=== PATIENT | female | born 1950 | race Caucasian/White ===

== ENCOUNTER 2018-06-04 10:56 | Inpatient (IN) | payer MEDICARE, MEDICAID ==
[~2018-06-04] VITALS: Ht 152.4 cm; Wt 84.4 kg
[2018-06-04] MEDS: IPRATROPIUM/ALBUTEROL 0.5-3(2.5)MG/3ML NEB HHN SCH ×6 (04:00→21:45)
[~2018-06-04 10:56] MED LIST: ALBU05 NEB; BENA40TA9 PO; CLOP75TA33 PO; FERR325T30 PO; FLUT1DIS3 INH; GLV55 PO; INSLIS SUBCUT; LANTUSUD SUBCUT; OMEP20CA4 PO; PHEN100C4 PO; ROSU20TA PO; TAMO20TA4 PO; TIOT18CA3 INH; ZOLP10TA2 PO
[2018-06-04] MEDS ORDERED: METHYLPREDNISOLONE SOD SUCC 125 MG/2 ML VIAL IV STA (11:17)
[2018-06-04] MEDS ORDERED: LEVOFLOXACIN 750MG PREMIX 150 ML IV ONE (11:30)
[2018-06-04] MEDS ORDERED: MAGNESIUM 2 G PREMIX 50 ML IV ONE (11:30)
[2018-06-04] MEDS ORDERED: IPRATROPIUM/ALBUTEROL 0.5-3(2.5)MG/3ML NEB HHN ONE (11:45)
[2018-06-04 11:51] LABS: BG BASE EXCESS -1.7 mmol/L (-2.0-2.0); BG CARBOXYHEMOGLOBIN 0.9 % (0.5-1.5); BG DEOXYHEMOGLOBIN 13.4 % (0.0-5.0); BG HCO3 ACT 25.7 mmol/L (22.0-26.0); BG METHEMOGLOBIN 0.3 % (0.0-1.5); BG OXYGEN SATURATION 86.4 % (92.0-98.5); BG OXYHEMOGLOBIN 85.4 % (94.0-97.0); BG PCO2 56.9 mmHg (35.0-45.0); BG PH 7.272 (7.350-7.450); BG PO2 57.1 mmHg (75.0-100.0); BG SAMPLE SITE LEFT RADIAL; BG VENT MODE MASK - SIMPLE
[2018-06-04 12:11] LABS: CHLORIDE 105 mEq/L (98-107)
[2018-06-04 12:18] LABS: BASOPHILS % 1.1 % (0.0-2.0); EOSINOPHILS % 1.7 % (0.0-5.0); HEMATOCRIT. 30.1 % (36.0-48.0); HEMOGLOBIN. 9.6 g/dL (12.0-16.0); LYMPHOCYTES % 7.5 % (20.0-50.0); MEAN CORPUSCULAR HEMOGLOBIN 30.3 pg (28.0-32.0); MEAN CORPUSCULAR VOLUME 95.2 fL (81.0-99.0); MEAN PLATELET VOLUME 7.9 fl (7.4-10.4); MONOCYTES % 4.4 % (2.0-8.0); NEUTROPHILS % 85.3 % (40.0-76.0); PLATELET 179 x1000/uL (130-400); RED BLOOD CELL COUNT 3.16 mill/uL (4.2-5.4); RED CELL DISTRIBUTION WIDTH 18.9 % (11.6-14.6)
[2018-06-04 12:21] LABS: PARTIAL THROMBOPLASTIN TIME 24.4 sec (23.4-31.0); PROTHROMBIN TIME 9.9 sec (9.1-11.1)
[2018-06-04 13:18] LABS: CLARITY URINE CLOUDY (CLEAR); COLOR URINE YELLOW (YELLOW); KETONES URINE NEGATIVE (NEGATIVE); LEUKOCYTE ESTERASE URINE NEGATIVE (NEGATIVE); NITRITE URINE NEGATIVE (NEGATIVE); OCCULT BLOOD URINE NEGATIVE (NEGATIVE); PROTEIN URINE NEGATIVE (NEGATIVE); SPECIFIC GRAVITY URINE 1.017 (1.005-1.030); UROBILINOGEN URINE 0.2 E.U./dL (0.2-1.0)
[2018-06-04] MEDS ORDERED: ONDANSETRON HCL 4MG/2ML INJ IV ONE (13:30)
[2018-06-04] MEDS ORDERED: MORPHINE SULFATE 4 MG/ML CPJ (NOT FOR IM USE) IV ONE (13:30)
[2018-06-04 18:00] VITALS: BP 109/51
[2018-06-04 18:13] VITALS: BP 105/66
[2018-06-04] MEDS ORDERED: PIPERACILLIN/TAZ 3.375G PREMIX 50 ML IV ONE (19:00)
[2018-06-04] MEDS ORDERED: P20 MT (19:52)
[2018-06-04] MEDS ORDERED: FOLI-43 MT (19:52)
[2018-06-04] MEDS ORDERED: GABA-531 MT (19:52)
[2018-06-04] MEDS ORDERED: INSULIN LISPRO 100 UNITS/ML SUBCUT NR ×2 (20:00→23:30)
[2018-06-04] MEDS ORDERED: ZOSYN XX SCH (20:00)
[2018-06-04 20:03] VITALS: BP 121/43
[2018-06-04] MEDS ORDERED: INSULIN LISPRO 100 UNITS/ML SUBCUT SCH (21:00)
[2018-06-04] MEDS ORDERED: IPRATROPIUM/ALBUTEROL 0.5-3(2.5)MG/3ML NEB ONE (21:41)
[2018-06-04] MEDS ORDERED: IPRATROPIUM/ALBUTEROL 0.5-3(2.5)MG/3ML NEB HHN PRN (21:45)
[2018-06-04] MEDS: BLOOD SUGAR DIAGNOSTIC STRIP TEST SCH (21:59)
[2018-06-04 22:00] VITALS: BP 95/45
[2018-06-04] MEDS ORDERED: VANCOMYCIN 2,000 MG in DEXT 5% WATER 500 ML IV SCH (22:00)
[2018-06-04] MEDS ORDERED: PIPERACILLIN/TAZ 2.25G PREMIX 50 ML IV SCH (22:00)
[2018-06-04] MEDS: INSULIN GLARGINE UD 100 UNITS/ML SYR SUBCUT SCH (22:41)
[2018-06-05] VITALS (11 sets, daily range): BP systolic 90–154; BP diastolic 38–71
[2018-06-05] MEDS: IPRATROPIUM/ALBUTEROL 0.5-3(2.5)MG/3ML NEB HHN SCH ×7 (01:02→20:52)
[2018-06-05] MEDS: PIPERACILLIN/TAZ 3.375G PREMIX 50 ML IV SCH ×2 (01:36→06:16)
[2018-06-05] MEDS: SODIUM CHLORIDE 0.45% 1,000 ML IV SCH ×2 (01:37→19:30)
[2018-06-05 06:05] LABS: HEMATOCRIT. 25.2 % (36.0-48.0); HEMOGLOBIN. 8.1 g/dL (12.0-16.0); MEAN CORPUSCULAR HEMOGLOBIN 29.5 pg (28.0-32.0); MEAN PLATELET VOLUME 7.9 fl (7.4-10.4); PLATELET 169 x1000/uL (130-400); RED BLOOD CELL COUNT 2.74 mill/uL (4.2-5.4); RED CELL DISTRIBUTION WIDTH 18.2 % (11.6-14.6)
[2018-06-05] MEDS: BLOOD SUGAR DIAGNOSTIC STRIP TEST SCH ×4 (06:16→21:30)
[2018-06-05] MEDS: PHENYTOIN SODIUM EXTENDED 100MG CAPSULE PO SCH ×2 (06:16→17:21)
[2018-06-05 06:36] LABS: PHOSPHORUS 4.8 mg/dL (2.5-4.9)
[2018-06-05] MEDS ORDERED: OMEPRAZOLE 20MG CAPSULE EXTENDED RELEASE PO SCH (06:50)
[2018-06-05] MEDS: INSULIN LISPRO 100 UNITS/ML SUBCUT SCH ×5 (08:11→22:25)
[2018-06-05] MEDS: PREDNISONE 20MG TABLET PO SCH (08:22)
[2018-06-05] MEDS: FOLIC ACID 1MG TABLET PO SCH (08:22)
[2018-06-05] MEDS: FERROUS SULFATE 300MG/5ML UDC PO SCH ×2 (08:23→17:23)
[2018-06-05] MEDS ORDERED: BARIUM SULFATE 450ML ORAL SUSP PO SCH (10:00)
[2018-06-05] MEDS ORDERED: DIATR MEGLU/DIATRIZOATE SOLN 30ML PO SCH (10:00)
[2018-06-05] MEDS: TAMOXIFEN 10MG TABLET PO SCH (10:08)
[2018-06-05 10:46] LABS: PLATELET ESTIMATE NORMAL
[2018-06-05 10:57] LABS: BG BASE EXCESS -4.8 mmol/L (-2.0-2.0); BG CARBOXYHEMOGLOBIN 0.8 % (0.5-1.5); BG DEOXYHEMOGLOBIN 9.4 % (0.0-5.0); BG FRACTION INSPIRED OXYGEN 44; BG HCO3 ACT 23.7 mmol/L (22.0-26.0); BG METHEMOGLOBIN 0.3 % (0.0-1.5); BG OXYGEN SATURATION 90.5 % (92.0-98.5); BG OXYHEMOGLOBIN 89.5 % (94.0-97.0); BG PH 7.187 (7.350-7.450); BG PO2 66.6 mmHg (75.0-100.0); BG SAMPLE SITE LEFT RADIAL; BG TOTAL HEMOGLOBIN 9.1 g/dL (12.0-18.0); BG VENT MODE NASAL CANNULA
[2018-06-05] MEDS: PIPERACILLIN/TAZ 2.25G PREMIX 50 ML IV SCH ×3 (11:45→23:20)
[2018-06-05] MEDS: ACETAMINOPHEN 500MG TABLET PO PRN ×2 (12:09→22:55)
[2018-06-05 17:26] LABS: BG BASE EXCESS -3.1 mmol/L (-2.0-2.0); BG BILEVEL POS AIRWAY PRESSURE 15/5; BG CARBOXYHEMOGLOBIN 0.5 % (0.5-1.5); BG DEOXYHEMOGLOBIN 2.1 % (0.0-5.0); BG HCO3 ACT 24.6 mmol/L (22.0-26.0); BG METHEMOGLOBIN 0.2 % (0.0-1.5); BG OXYGEN SATURATION 97.9 % (92.0-98.5); BG OXYHEMOGLOBIN 97.2 % (94.0-97.0); BG PCO2 58.6 mmHg (35.0-45.0); BG PH 7.241 (7.350-7.450); BG PO2 133.3 mmHg (75.0-100.0); BG SAMPLE SITE RIGHT BRACHIAL; BG TOTAL HEMOGLOBIN 9.5 g/dL (12.0-18.0); BG VENT MODE MASK - BIPAP; BG VENT RATE 12 set
[2018-06-05] MEDS ORDERED: NON FORMULARY PATIENT HOME MED EA XX SCH ×2 (18:45→21:45)
[2018-06-05] MEDS ORDERED: PHENYTOIN SODIUM 100MG/2ML VIAL IV SCH (19:00)
[2018-06-05] MEDS ORDERED: VANCOMYCIN 750 MG PREMIX 150 ML IV SCH (20:00)
[2018-06-05] MEDS: ARFORMOTEROL TARTRATE 15MCG/2ML NEB NEB SCH (20:59)
[2018-06-05] MEDS ORDERED: VANCOMYCIN 1 G PREMIX 200 ML IV SCH (21:00)
[2018-06-05] MEDS ORDERED: SODIUM POLYSTYRENE SULFONATE 15 G/60 ML BOT PO NR (21:00)
[2018-06-05] MEDS ORDERED: NON FORMULARY PATIENT HOME MED EA XX STA (21:34)
[2018-06-05] MEDS ORDERED: PHENYTOIN SODIUM 200 MG in SODIUM CHLORIDE 0.9% 50 ML IV SCH (21:45)
[2018-06-05] MEDS ORDERED: SORBITOL 70% SOLN 30ML PO NR (22:00)
[2018-06-05] MEDS: ATORVASTATIN CALCIUM 40MG TABLET PO SCH (22:24)
[2018-06-05] MEDS: INSULIN GLARGINE UD 100 UNITS/ML SYR SUBCUT SCH (22:26)
[2018-06-05] MEDS ORDERED: PHENYTOIN SODIUM 400 MG in SODIUM CHLORIDE 0.9% 50 ML IV NR (22:30)
[2018-06-06] VITALS (12 sets, daily range): BP systolic 99–149; BP diastolic 33–77
[2018-06-06] MEDS: IPRATROPIUM/ALBUTEROL 0.5-3(2.5)MG/3ML NEB HHN SCH ×6 (01:01→21:57)
[2018-06-06] MEDS: HYDROCODONE/ACETAMINOPHEN 5/325MG TABLET PO PRN ×2 (02:52→21:07)
[2018-06-06] MEDS: PIPERACILLIN/TAZ 2.25G PREMIX 50 ML IV SCH ×3 (06:37→17:44)
[2018-06-06] MEDS: INSULIN LISPRO 100 UNITS/ML SUBCUT SCH ×8 (06:38→20:44)
[2018-06-06] MEDS: BLOOD SUGAR DIAGNOSTIC STRIP TEST SCH ×4 (06:39→20:41)
[2018-06-06] MEDS: ARFORMOTEROL TARTRATE 15MCG/2ML NEB NEB SCH (08:28)
[2018-06-06] MEDS: PANTOPRAZOLE SODIUM 40 MG/VIAL IV SCH (08:34)
[2018-06-06] MEDS: FOLIC ACID 1MG TABLET PO SCH (08:34)
[2018-06-06] MEDS: FERROUS SULFATE 300MG/5ML UDC PO SCH ×2 (08:34→17:44)
[2018-06-06] MEDS: PREDNISONE 20MG TABLET PO SCH (08:34)
[2018-06-06] MEDS: PHENYTOIN SODIUM 200 MG in SODIUM CHLORIDE 0.9% 50 ML IV SCH ×2 (08:34→21:26)
[2018-06-06] MEDS: TAMOXIFEN 10MG TABLET PO SCH (08:35)
[2018-06-06] MEDS ORDERED: PHENYTOIN SODIUM 100MG/2ML VIAL IV SCH (09:00)
[2018-06-06 11:02] LABS: BG BASE EXCESS 0.2 mmol/L (-2.0-2.0); BG BILEVEL POS AIRWAY PRESSURE 15/5; BG CARBOXYHEMOGLOBIN 0.6 % (0.5-1.5); BG DEOXYHEMOGLOBIN 6.3 % (0.0-5.0); BG FRACTION INSPIRED OXYGEN 40; BG HCO3 ACT 26.1 mmol/L (22.0-26.0); BG METHEMOGLOBIN 0.1 % (0.0-1.5); BG OXYGEN SATURATION 93.7 % (92.0-98.5); BG PCO2 49.2 mmHg (35.0-45.0); BG PH 7.343 (7.350-7.450); BG SAMPLE SITE RIGHT BRACHIAL; BG TOTAL HEMOGLOBIN 8.8 g/dL (12.0-18.0); BG VENT MODE MASK - BIPAP; BG VENT RATE 12 set
[2018-06-06] MEDS: SODIUM CHLORIDE 0.45% 1,000 ML IV SCH (16:33)
[2018-06-06 16:41] LABS: HEMATOCRIT. 26.6 % (36.0-48.0); HEMOGLOBIN. 8.7 g/dL (12.0-16.0); MEAN CORPUSCULAR HEMOGLOBIN 30.4 pg (28.0-32.0); MEAN CORPUSCULAR VOLUME 93.1 fL (81.0-99.0); MEAN PLATELET VOLUME 7.9 fl (7.4-10.4); PLATELET 191 x1000/uL (130-400); RED BLOOD CELL COUNT 2.86 mill/uL (4.2-5.4); RED CELL DISTRIBUTION WIDTH 18.3 % (11.6-14.6)
[2018-06-06 17:07] LABS: PLATELET ESTIMATE NORMAL
[2018-06-06] MEDS: ATORVASTATIN CALCIUM 40MG TABLET PO SCH (21:07)
[2018-06-06] MEDS: INSULIN GLARGINE UD 100 UNITS/ML SYR SUBCUT SCH (22:00)
[2018-06-06] MEDS ORDERED: VANCOMYCIN 1 G PREMIX 200 ML IV NR (23:59)
[2018-06-07] VITALS (13 sets, daily range): BP systolic 113–150; BP diastolic 49–111
[2018-06-07] MEDS: DEXTROSE 50% WATER 50ML SYRINGE IV PRN ×2 (00:01→06:35)
[2018-06-07] MEDS: PIPERACILLIN/TAZ 2.25G PREMIX 50 ML IV SCH ×5 (00:53→23:42)
[2018-06-07] MEDS: ACETAMINOPHEN 500MG TABLET PO PRN ×2 (01:30→09:16)
[2018-06-07] MEDS: IPRATROPIUM/ALBUTEROL 0.5-3(2.5)MG/3ML NEB HHN SCH ×6 (01:44→21:46)
[2018-06-07] MEDS: HYDROCODONE/ACETAMINOPHEN 5/325MG TABLET PO PRN ×4 (05:30→20:24)
[2018-06-07] MEDS: BLOOD SUGAR DIAGNOSTIC STRIP TEST SCH ×4 (06:30→20:21)
[2018-06-07 07:17] LABS: EOSINOPHILS % 2.2 % (0.0-5.0); HEMATOCRIT. 27.6 % (36.0-48.0); LYMPHOCYTES % 9.5 % (20.0-50.0); MEAN CORPUSCULAR HEMOGLOBIN 29.6 pg (28.0-32.0); MEAN CORPUSCULAR VOLUME 91.1 fL (81.0-99.0); MEAN PLATELET VOLUME 7.6 fl (7.4-10.4); MONOCYTES % 9.2 % (2.0-8.0); NEUTROPHILS % 78.1 % (40.0-76.0); PLATELET 187 x1000/uL (130-400); RED BLOOD CELL COUNT 3.03 mill/uL (4.2-5.4); RED CELL DISTRIBUTION WIDTH 18.1 % (11.6-14.6)
[2018-06-07] MEDS: ARFORMOTEROL TARTRATE 15MCG/2ML NEB NEB SCH ×2 (07:41→22:18)
[2018-06-07] MEDS: FOLIC ACID 1MG TABLET PO SCH (09:15)
[2018-06-07] MEDS: PHENYTOIN SODIUM 200 MG in SODIUM CHLORIDE 0.9% 50 ML IV SCH ×2 (09:15→23:03)
[2018-06-07] MEDS: PREDNISONE 20MG TABLET PO SCH (09:16)
[2018-06-07] MEDS: TAMOXIFEN 10MG TABLET PO SCH (09:16)
[2018-06-07] MEDS: FERROUS SULFATE 300MG/5ML UDC PO SCH ×2 (09:16→16:52)
[2018-06-07] MEDS: PANTOPRAZOLE SODIUM 40 MG/VIAL IV SCH (09:16)
[2018-06-07] MEDS ORDERED: PHENYTOIN SODIUM 700 MG in SODIUM CHLORIDE 0.9% 100 ML IV SCH (09:30)
[2018-06-07 09:40] LABS: PHOSPHORUS 1.9 mg/dL (2.5-4.9)
[2018-06-07] MEDS: SODIUM CHLORIDE 0.45% 1,000 ML IV SCH (11:47)
[2018-06-07 14:31] LABS: BG BASE EXCESS 2.7 mmol/L (-2.0-2.0); BG BILEVEL POS AIRWAY PRESSURE 15/5; BG CARBOXYHEMOGLOBIN 0.8 % (0.5-1.5); BG DEOXYHEMOGLOBIN 1.5 % (0.0-5.0); BG HCO3 ACT 27.6 mmol/L (22.0-26.0); BG METHEMOGLOBIN 0.2 % (0.0-1.5); BG OXYGEN SATURATION 98.5 % (92.0-98.5); BG OXYHEMOGLOBIN 97.5 % (94.0-97.0); BG PCO2 44.1 mmHg (35.0-45.0); BG PH 7.414 (7.350-7.450); BG SAMPLE SITE RIGHT RADIAL; BG TOTAL HEMOGLOBIN 9.3 g/dL (12.0-18.0); BG VENT MODE MASK - BIPAP; BG VENT RATE 12 set
[2018-06-07] MEDS ORDERED: SODIUM PHOS,M-BASIC-D-BASIC 20 MM in DEXT 5% WATER 243.3333 ML IV NR (15:00)
[2018-06-07] MEDS: ATORVASTATIN CALCIUM 40MG TABLET PO SCH (20:22)
[2018-06-08] VITALS (11 sets, daily range): BP systolic 122–167; BP diastolic 55–80
[2018-06-08] MEDS: IPRATROPIUM/ALBUTEROL 0.5-3(2.5)MG/3ML NEB HHN SCH ×5 (01:24→21:52)
[2018-06-08] MEDS: PIPERACILLIN/TAZ 2.25G PREMIX 50 ML IV SCH ×3 (05:36→17:18)
[2018-06-08] MEDS: VANCOMYCIN 1 G PREMIX 200 ML IV SCH (06:06)
[2018-06-08] MEDS: HYDROCODONE/ACETAMINOPHEN 5/325MG TABLET PO PRN ×3 (06:24→21:35)
[2018-06-08] MEDS: BLOOD SUGAR DIAGNOSTIC STRIP TEST SCH ×4 (06:24→21:35)
[2018-06-08 07:26] LABS: BASOPHILS % 1.1 % (0.0-2.0); EOSINOPHILS % 1.8 % (0.0-5.0); HEMATOCRIT. 28.4 % (36.0-48.0); HEMOGLOBIN. 9.3 g/dL (12.0-16.0); LYMPHOCYTES % 9.3 % (20.0-50.0); MEAN CORPUSCULAR HEMOGLOBIN 29.6 pg (28.0-32.0); MEAN CORPUSCULAR VOLUME 90.5 fL (81.0-99.0); MEAN PLATELET VOLUME 7.6 fl (7.4-10.4); MONOCYTES % 9.2 % (2.0-8.0); NEUTROPHILS % 78.6 % (40.0-76.0); PLATELET 206 x1000/uL (130-400); RED BLOOD CELL COUNT 3.13 mill/uL (4.2-5.4); RED CELL DISTRIBUTION WIDTH 18.5 % (11.6-14.6)
[2018-06-08] MEDS: FAMOTIDINE 20MG/2ML VIAL IV SCH (08:21)
[2018-06-08] MEDS: PREDNISONE 20MG TABLET PO SCH (08:21)
[2018-06-08] MEDS: FERROUS SULFATE 300MG/5ML UDC PO SCH ×2 (08:21→17:18)
[2018-06-08] MEDS: FOLIC ACID 1MG TABLET PO SCH (08:21)
[2018-06-08] MEDS: TAMOXIFEN 10MG TABLET PO SCH (08:22)
[2018-06-08] MEDS: PHENYTOIN SODIUM 200 MG in SODIUM CHLORIDE 0.9% 50 ML IV SCH ×2 (09:24→21:15)
[2018-06-08] MEDS: ACETAMINOPHEN 500MG TABLET PO PRN ×2 (09:33→16:26)
[2018-06-08] MEDS ORDERED: DEXTROSE 50% WATER 50ML SYRINGE IV PRN (12:15)
[2018-06-08] MEDS: ARFORMOTEROL TARTRATE 15MCG/2ML NEB NEB SCH ×2 (13:03→21:50)
[2018-06-08] MEDS: INSULIN LISPRO 100 UNITS/ML SUBCUT SCH ×3 (13:13→21:00)
[2018-06-08] MEDS: SODIUM CHLORIDE 0.45% 1,000 ML IV SCH (16:31)
[2018-06-08] MEDS: ATORVASTATIN CALCIUM 40MG TABLET PO SCH (21:15)
[2018-06-08] MEDS: ONDANSETRON HCL 4MG/2ML INJ IV PRN (21:35)
[2018-06-09] VITALS (10 sets, daily range): BP systolic 108–138; BP diastolic 55–80
[2018-06-09] MEDS: PIPERACILLIN/TAZ 2.25G PREMIX 50 ML IV SCH ×3 (00:48→11:32)
[2018-06-09] MEDS: IPRATROPIUM/ALBUTEROL 0.5-3(2.5)MG/3ML NEB HHN SCH ×6 (00:55→20:11)
[2018-06-09] MEDS: ACETAMINOPHEN 500MG TABLET PO PRN ×3 (03:11→20:31)
[2018-06-09] MEDS: SODIUM CHLORIDE 0.45% 1,000 ML IV SCH ×2 (03:30→23:02)
[2018-06-09] MEDS: HYDROCODONE/ACETAMINOPHEN 5/325MG TABLET PO PRN (04:26)
[2018-06-09] MEDS: VANCOMYCIN 1 G PREMIX 200 ML IV SCH (06:39)
[2018-06-09] MEDS: BLOOD SUGAR DIAGNOSTIC STRIP TEST SCH ×4 (06:43→20:31)
[2018-06-09] MEDS: INSULIN LISPRO 100 UNITS/ML SUBCUT SCH ×4 (06:53→21:37)
[2018-06-09 08:13] LABS: BASOPHILS % 1.1 % (0.0-2.0); EOSINOPHILS % 2.3 % (0.0-5.0); HEMATOCRIT. 27.8 % (36.0-48.0); HEMOGLOBIN. 9.1 g/dL (12.0-16.0); LYMPHOCYTES % 11.3 % (20.0-50.0); MEAN CORPUSCULAR HEMOGLOBIN 29.8 pg (28.0-32.0); MEAN PLATELET VOLUME 7.6 fl (7.4-10.4); MONOCYTES % 9.8 % (2.0-8.0); NEUTROPHILS % 75.5 % (40.0-76.0); PLATELET 187 x1000/uL (130-400); RED BLOOD CELL COUNT 3.05 mill/uL (4.2-5.4); RED CELL DISTRIBUTION WIDTH 17.8 % (11.6-14.6)
[2018-06-09] MEDS: FAMOTIDINE 20MG/2ML VIAL IV SCH (08:17)
[2018-06-09] MEDS: TAMOXIFEN 10MG TABLET PO SCH (08:18)
[2018-06-09] MEDS: PREDNISONE 20MG TABLET PO SCH (08:18)
[2018-06-09] MEDS: FOLIC ACID 1MG TABLET PO SCH (08:18)
[2018-06-09] MEDS: FERROUS SULFATE 300MG/5ML UDC PO SCH ×2 (08:24→16:40)
[2018-06-09 08:34] LABS: PHOSPHORUS 2.9 mg/dL (2.5-4.9)
[2018-06-09] MEDS: ARFORMOTEROL TARTRATE 15MCG/2ML NEB NEB SCH ×2 (08:54→20:11)
[2018-06-09] MEDS: OMEPRAZOLE 20MG CAPSULE EXTENDED RELEASE PO SCH (09:00)
[2018-06-09] MEDS: BENAZEPRIL 10MG TABLET PO SCH (09:00)
[2018-06-09] MEDS: GABAPENTIN 300MG CAPSULE PO SCH ×2 (09:25→16:40)
[2018-06-09] MEDS: PHENYTOIN SODIUM 200 MG in SODIUM CHLORIDE 0.9% 50 ML IV SCH ×2 (09:30→20:17)
[2018-06-09] MEDS ORDERED: MAGNESIUM 4 G PREMIX 100 ML IV NR (12:00)
[2018-06-09] MEDS: TERBINAFINE HCL 1% CREAM 30GM TOP SCH (16:40)
[2018-06-09] MEDS: VANCOMYCIN HCL 1000 MG/20 ML ORAL PO SCH (19:03)
[2018-06-09] MEDS: ATORVASTATIN CALCIUM 40MG TABLET PO SCH (20:17)
[2018-06-10] VITALS (12 sets, daily range): BP systolic 93–146; BP diastolic 46–91
[2018-06-10] MEDS: IPRATROPIUM/ALBUTEROL 0.5-3(2.5)MG/3ML NEB HHN SCH ×5 (00:11→20:28)
[2018-06-10] MEDS: VANCOMYCIN HCL 1000 MG/20 ML ORAL PO SCH ×5 (00:13→23:26)
[2018-06-10] MEDS: ARFORMOTEROL TARTRATE 15MCG/2ML NEB NEB SCH ×2 (00:43→18:30)
[2018-06-10] MEDS: HYDROCODONE/ACETAMINOPHEN 5/325MG TABLET PO PRN ×5 (02:23→23:26)
[2018-06-10 05:42] LABS: HEMATOCRIT. 28.2 % (36.0-48.0); HEMOGLOBIN. 9.1 g/dL (12.0-16.0); MEAN CORPUSCULAR HEMOGLOBIN 29.3 pg (28.0-32.0); MEAN CORPUSCULAR VOLUME 90.5 fL (81.0-99.0); MEAN PLATELET VOLUME 7.4 fl (7.4-10.4); PLATELET 194 x1000/uL (130-400); RED BLOOD CELL COUNT 3.12 mill/uL (4.2-5.4); RED CELL DISTRIBUTION WIDTH 17.9 % (11.6-14.6)
[2018-06-10 06:00] LABS: PHOSPHORUS 2.5 mg/dL (2.5-4.9)
[2018-06-10] MEDS: OMEPRAZOLE 20MG CAPSULE EXTENDED RELEASE PO SCH (06:39)
[2018-06-10] MEDS: BLOOD SUGAR DIAGNOSTIC STRIP TEST SCH ×4 (06:40→21:00)
[2018-06-10] MEDS: INSULIN LISPRO 100 UNITS/ML SUBCUT SCH ×4 (06:48→21:00)
[2018-06-10 08:59] LABS: PLATELET ESTIMATE NORMAL
[2018-06-10] MEDS: FOLIC ACID 1MG TABLET PO SCH (10:24)
[2018-06-10] MEDS: FAMOTIDINE 20MG/2ML VIAL IV SCH (10:24)
[2018-06-10] MEDS: BENAZEPRIL 10MG TABLET PO SCH (10:24)
[2018-06-10] MEDS: GABAPENTIN 300MG CAPSULE PO SCH ×2 (10:24→18:01)
[2018-06-10] MEDS: TAMOXIFEN 10MG TABLET PO SCH (10:24)
[2018-06-10] MEDS: FERROUS SULFATE 300MG/5ML UDC PO SCH ×2 (10:24→18:01)
[2018-06-10] MEDS: PHENYTOIN SODIUM 200 MG in SODIUM CHLORIDE 0.9% 50 ML IV SCH ×2 (10:25→22:10)
[2018-06-10] MEDS: TERBINAFINE HCL 1% CREAM 30GM TOP SCH (10:26)
[2018-06-10] MEDS: PREDNISONE 20MG TABLET PO SCH (10:26)
[2018-06-10] MEDS ORDERED: LORAZEPAM 2MG/ML CPJ IV SCH (13:00)
[2018-06-10 13:19] LABS: BG BASE EXCESS 4.1 mmol/L (-2.0-2.0); BG BILEVEL POS AIRWAY PRESSURE ST=15/5; BG CARBOXYHEMOGLOBIN 0.3 % (0.5-1.5); BG DEOXYHEMOGLOBIN 2.5 % (0.0-5.0); BG FRACTION INSPIRED OXYGEN 65; BG METHEMOGLOBIN 0.1 % (0.0-1.5); BG OXYGEN SATURATION 97.5 % (92.0-98.5); BG OXYHEMOGLOBIN 97.1 % (94.0-97.0); BG PCO2 45.7 mmHg (35.0-45.0); BG PH 7.421 (7.350-7.450); BG PO2 109.4 mmHg (75.0-100.0); BG PRESSURE SUPPORT 10; BG SAMPLE SITE LEFT RADIAL; BG TOTAL HEMOGLOBIN 9.9 g/dL (12.0-18.0); BG VENT MODE MASK - BIPAP; BG VENT RATE 12 set
[2018-06-10] MEDS: SODIUM CHLORIDE 0.45% 1,000 ML IV SCH (18:02)
[2018-06-10] MEDS: ATORVASTATIN CALCIUM 40MG TABLET PO SCH (22:10)
[2018-06-11] VITALS (10 sets, daily range): BP systolic 95–128; BP diastolic 48–87
[2018-06-11] MEDS: IPRATROPIUM/ALBUTEROL 0.5-3(2.5)MG/3ML NEB HHN SCH ×6 (00:43→21:32)
[2018-06-11] MEDS: HYDROCODONE/ACETAMINOPHEN 5/325MG TABLET PO PRN ×2 (04:24→20:47)
[2018-06-11] MEDS: BLOOD SUGAR DIAGNOSTIC STRIP TEST SCH ×4 (05:56→20:48)
[2018-06-11] MEDS: VANCOMYCIN HCL 1000 MG/20 ML ORAL PO SCH ×3 (05:56→17:13)
[2018-06-11] MEDS: OMEPRAZOLE 20MG CAPSULE EXTENDED RELEASE PO SCH (06:02)
[2018-06-11 06:55] LABS: BG BASE EXCESS 4.6 mmol/L (-2.0-2.0); BG BILEVEL POS AIRWAY PRESSURE 15/5; BG CARBOXYHEMOGLOBIN 0.2 % (0.5-1.5); BG DEOXYHEMOGLOBIN 3.3 % (0.0-5.0); BG FRACTION INSPIRED OXYGEN 65; BG HCO3 ACT 30.3 mmol/L (22.0-26.0); BG METHEMOGLOBIN 0.2 % (0.0-1.5); BG OXYGEN SATURATION 96.7 % (92.0-98.5); BG OXYHEMOGLOBIN 96.3 % (94.0-97.0); BG PCO2 51.4 mmHg (35.0-45.0); BG PH 7.388 (7.350-7.450); BG PO2 100.3 mmHg (75.0-100.0); BG SAMPLE SITE LEFT RADIAL; BG TOTAL HEMOGLOBIN 8.7 g/dL (12.0-18.0); BG VENT MODE MASK - BIPAP; BG VENT RATE 12 set
[2018-06-11] MEDS: INSULIN LISPRO 100 UNITS/ML SUBCUT SCH ×4 (07:20→21:13)
[2018-06-11 07:54] LABS: BASOPHILS % 1.2 % (0.0-2.0); EOSINOPHILS % 1.6 % (0.0-5.0); HEMATOCRIT. 26.8 % (36.0-48.0); HEMOGLOBIN. 8.6 g/dL (12.0-16.0); LYMPHOCYTES % 9.2 % (20.0-50.0); MEAN CORPUSCULAR HEMOGLOBIN 29.8 pg (28.0-32.0); MEAN CORPUSCULAR VOLUME 92.8 fL (81.0-99.0); MEAN PLATELET VOLUME 7.5 fl (7.4-10.4); MONOCYTES % 6.2 % (2.0-8.0); NEUTROPHILS % 81.8 % (40.0-76.0); PLATELET 178 x1000/uL (130-400); RED BLOOD CELL COUNT 2.89 mill/uL (4.2-5.4); RED CELL DISTRIBUTION WIDTH 17.9 % (11.6-14.6)
[2018-06-11] MEDS: ARFORMOTEROL TARTRATE 15MCG/2ML NEB NEB SCH ×2 (08:06→20:43)
[2018-06-11] MEDS: PHENYTOIN SODIUM 200 MG in SODIUM CHLORIDE 0.9% 50 ML IV SCH ×2 (08:20→20:48)
[2018-06-11] MEDS: GABAPENTIN 300MG CAPSULE PO SCH ×2 (08:20→16:13)
[2018-06-11] MEDS: FAMOTIDINE 20MG/2ML VIAL IV SCH (08:20)
[2018-06-11] MEDS: PREDNISONE 20MG TABLET PO SCH (08:20)
[2018-06-11 08:21] LABS: CHLORIDE 108 mEq/L (98-107)
[2018-06-11] MEDS: BENAZEPRIL 10MG TABLET PO SCH (08:21)
[2018-06-11] MEDS: FOLIC ACID 1MG TABLET PO SCH (08:21)
[2018-06-11] MEDS: TAMOXIFEN 10MG TABLET PO SCH (08:22)
[2018-06-11 08:27] LABS: PHOSPHORUS 2.7 mg/dL (2.5-4.9)
[2018-06-11] MEDS: ACETAMINOPHEN 500MG TABLET PO PRN ×2 (08:37→15:57)
[2018-06-11] MEDS: FERROUS SULFATE 300MG/5ML UDC PO SCH ×2 (08:42→16:13)
[2018-06-11] MEDS: TERBINAFINE HCL 1% CREAM 30GM TOP SCH (08:43)
[2018-06-11] MEDS ORDERED: MAGNESIUM 2 G PREMIX 50 ML IV ONE (11:00)
[2018-06-11] MEDS ORDERED: MAGNESIUM SULFATE 2 GM in DEXTROSE 5% WATER 50 ML IV NR (12:30)
[2018-06-11] MEDS: SODIUM CHLORIDE 0.45% 1,000 ML IV SCH (13:57)
[2018-06-11] MEDS: ATORVASTATIN CALCIUM 40MG TABLET PO SCH (20:47)
[2018-06-12] VITALS (12 sets, daily range): BP systolic 91–146; BP diastolic 43–76
[2018-06-12] MEDS: VANCOMYCIN HCL 1000 MG/20 ML ORAL PO SCH ×4 (01:13→17:39)
[2018-06-12] MEDS: HYDROCODONE/ACETAMINOPHEN 5/325MG TABLET PO PRN ×4 (01:41→22:00)
[2018-06-12] MEDS: IPRATROPIUM/ALBUTEROL 0.5-3(2.5)MG/3ML NEB HHN SCH ×6 (02:22→21:19)
[2018-06-12] MEDS: BLOOD SUGAR DIAGNOSTIC STRIP TEST SCH ×4 (06:52→21:37)
[2018-06-12] MEDS: INSULIN LISPRO 100 UNITS/ML SUBCUT SCH ×4 (07:11→21:00)
[2018-06-12 07:58] LABS: BASOPHILS % 1.5 % (0.0-2.0); EOSINOPHILS % 1.3 % (0.0-5.0); HEMATOCRIT. 25.1 % (36.0-48.0); LYMPHOCYTES % 9.9 % (20.0-50.0); MEAN CORPUSCULAR HEMOGLOBIN 29.2 pg (28.0-32.0); MEAN CORPUSCULAR VOLUME 91.6 fL (81.0-99.0); MEAN PLATELET VOLUME 7.5 fl (7.4-10.4); MONOCYTES % 6.6 % (2.0-8.0); NEUTROPHILS % 80.7 % (40.0-76.0); PLATELET 174 x1000/uL (130-400); RED BLOOD CELL COUNT 2.74 mill/uL (4.2-5.4); RED CELL DISTRIBUTION WIDTH 17.7 % (11.6-14.6)
[2018-06-12] MEDS: BENAZEPRIL 10MG TABLET PO SCH (08:24)
[2018-06-12] MEDS: FERROUS SULFATE 325MG TABLET PO SCH ×2 (08:24→17:39)
[2018-06-12] MEDS: FOLIC ACID 1MG TABLET PO SCH (08:24)
[2018-06-12] MEDS: FAMOTIDINE 20MG TABLET PO SCH (08:25)
[2018-06-12] MEDS: ARFORMOTEROL TARTRATE 15MCG/2ML NEB NEB SCH (08:25)
[2018-06-12] MEDS: PHENYTOIN SODIUM 200 MG in SODIUM CHLORIDE 0.9% 50 ML IV SCH ×2 (08:25→21:36)
[2018-06-12] MEDS: TAMOXIFEN 10MG TABLET PO SCH (08:25)
[2018-06-12] MEDS: GABAPENTIN 300MG CAPSULE PO SCH ×2 (08:25→17:39)
[2018-06-12] MEDS: PREDNISONE 20MG TABLET PO SCH (08:25)
[2018-06-12] MEDS: TERBINAFINE HCL 1% CREAM 30GM TOP SCH (08:25)
[2018-06-12 08:33] LABS: CHLORIDE 106 mEq/L (98-107)
[2018-06-12 08:42] LABS: PHOSPHORUS 2.4 mg/dL (2.5-4.9)
[2018-06-12] MEDS ORDERED: POTASSIUM PHOS,M-BASIC-D-BASIC 20 MMOL in DEXT 5% WATER 243.3333 ML IV NR (10:00)
[2018-06-12] MEDS ORDERED: MAGNESIUM 4 G PREMIX 100 ML IV NR (10:00)
[2018-06-12] MEDS: SODIUM CHLORIDE 0.45% 1,000 ML IV SCH (10:34)
[2018-06-12] MEDS: LEVETIRACETAM 500MG TABLET PO SCH (12:00)
[2018-06-12] MEDS: ATORVASTATIN CALCIUM 40MG TABLET PO SCH (21:37)
[2018-06-13] VITALS (11 sets, daily range): BP systolic 112–157; BP diastolic 36–113
[2018-06-13] MEDS: LEVETIRACETAM 500MG TABLET PO SCH ×3 (00:08→22:40)
[2018-06-13] MEDS: VANCOMYCIN HCL 1000 MG/20 ML ORAL PO SCH ×5 (00:09→22:40)
[2018-06-13] MEDS: ARFORMOTEROL TARTRATE 15MCG/2ML NEB NEB SCH (01:11)
[2018-06-13] MEDS: IPRATROPIUM/ALBUTEROL 0.5-3(2.5)MG/3ML NEB HHN SCH ×6 (01:24→20:00)
[2018-06-13] MEDS: HYDROCODONE/ACETAMINOPHEN 5/325MG TABLET PO PRN ×2 (04:36→23:17)
[2018-06-13 06:51] LABS: BASOPHILS % 0.9 % (0.0-2.0); EOSINOPHILS % 1.2 % (0.0-5.0); HEMATOCRIT. 26.2 % (36.0-48.0); HEMOGLOBIN. 8.3 g/dL (12.0-16.0); MEAN CORPUSCULAR HEMOGLOBIN 29.2 pg (28.0-32.0); MEAN CORPUSCULAR VOLUME 91.8 fL (81.0-99.0); MEAN PLATELET VOLUME 7.5 fl (7.4-10.4); MONOCYTES % 6.7 % (2.0-8.0); NEUTROPHILS % 80.2 % (40.0-76.0); PLATELET 171 x1000/uL (130-400); RED BLOOD CELL COUNT 2.86 mill/uL (4.2-5.4)
[2018-06-13 07:11] LABS: PHOSPHORUS 2.6 mg/dL (2.5-4.9)
[2018-06-13] MEDS: INSULIN LISPRO 100 UNITS/ML SUBCUT SCH ×4 (07:20→21:00)
[2018-06-13] MEDS: SODIUM CHLORIDE 0.45% 1,000 ML IV SCH ×2 (07:30→15:53)
[2018-06-13] MEDS: BLOOD SUGAR DIAGNOSTIC STRIP TEST SCH ×4 (07:46→21:00)
[2018-06-13 08:04] LABS: VITAMIN B12 SERUM 463 pg/mL (211-911)
[2018-06-13] MEDS: FAMOTIDINE 20MG TABLET PO SCH (08:31)
[2018-06-13] MEDS: PHENYTOIN SODIUM 200 MG in SODIUM CHLORIDE 0.9% 50 ML IV SCH ×2 (08:31→22:40)
[2018-06-13] MEDS: TAMOXIFEN 10MG TABLET PO SCH (08:31)
[2018-06-13] MEDS: PREDNISONE 20MG TABLET PO SCH (08:32)
[2018-06-13] MEDS: FOLIC ACID 1MG TABLET PO SCH (08:32)
[2018-06-13] MEDS: BENAZEPRIL 10MG TABLET PO SCH (08:32)
[2018-06-13] MEDS: GABAPENTIN 300MG CAPSULE PO SCH ×2 (08:32→19:09)
[2018-06-13] MEDS: FERROUS SULFATE 325MG TABLET PO SCH ×2 (08:32→19:09)
[2018-06-13] MEDS: TERBINAFINE HCL 1% CREAM 30GM TOP SCH (08:40)
[2018-06-13 09:03] LABS: FOLIC ACID (FOLATE) SERUM > 20.00 ng/mL (>5.38)
[2018-06-13] MEDS ORDERED: LORAZEPAM 2MG/ML CPJ IV NR (16:45)
[2018-06-13] MEDS: ATORVASTATIN CALCIUM 40MG TABLET PO SCH (22:39)
[2018-06-14] VITALS (12 sets, daily range): BP systolic 115–146; BP diastolic 37–91
[2018-06-14] MEDS: IPRATROPIUM/ALBUTEROL 0.5-3(2.5)MG/3ML NEB HHN SCH ×6 (00:35→21:25)
[2018-06-14] MEDS: BLOOD SUGAR DIAGNOSTIC STRIP TEST SCH ×4 (07:08→21:47)
[2018-06-14] MEDS: INSULIN LISPRO 100 UNITS/ML SUBCUT SCH ×4 (07:08→21:00)
[2018-06-14] MEDS: VANCOMYCIN HCL 1000 MG/20 ML ORAL PO SCH ×3 (07:09→17:00)
[2018-06-14] MEDS: FOLIC ACID 1MG TABLET PO SCH (08:20)
[2018-06-14] MEDS: TAMOXIFEN 10MG TABLET PO SCH (08:20)
[2018-06-14] MEDS: FERROUS SULFATE 325MG TABLET PO SCH ×2 (08:20→16:59)
[2018-06-14] MEDS: FAMOTIDINE 20MG TABLET PO SCH (08:20)
[2018-06-14] MEDS: PHENYTOIN SODIUM 200 MG in SODIUM CHLORIDE 0.9% 50 ML IV SCH ×2 (08:20→21:57)
[2018-06-14] MEDS: PREDNISONE 20MG TABLET PO SCH (08:20)
[2018-06-14] MEDS: GABAPENTIN 300MG CAPSULE PO SCH ×2 (08:20→16:59)
[2018-06-14] MEDS: TERBINAFINE HCL 1% CREAM 30GM TOP SCH (08:25)
[2018-06-14] MEDS: LEVETIRACETAM 250MG TABLET PO SCH ×2 (08:40→20:31)
[2018-06-14] MEDS: BENAZEPRIL 10MG TABLET PO SCH (09:00)
[2018-06-14] MEDS: SODIUM CHLORIDE 0.45% 1,000 ML IV SCH (10:51)
[2018-06-14] MEDS ORDERED: LORAZEPAM 2MG/ML CPJ IV NR (16:15)
[2018-06-14] MEDS: ACETAMINOPHEN 500MG TABLET PO PRN ×2 (17:00→20:31)
[2018-06-14] MEDS: ATORVASTATIN CALCIUM 40MG TABLET PO SCH (20:31)
[2018-06-14] MEDS ORDERED: SODIUM CHLORIDE 10% FOR INH 15ML VIAL NEB INH NR (21:30)
[2018-06-14] MEDS: SILDENAFIL CITRATE 20MG TABLET PO SCH (21:56)
[2018-06-15] VITALS (12 sets, daily range): BP systolic 114–137; BP diastolic 50–87
[2018-06-15] MEDS: IPRATROPIUM/ALBUTEROL 0.5-3(2.5)MG/3ML NEB HHN SCH ×6 (01:09→21:03)
[2018-06-15] MEDS: VANCOMYCIN HCL 1000 MG/20 ML ORAL PO SCH ×4 (05:44→17:34)
[2018-06-15] MEDS: SILDENAFIL CITRATE 20MG TABLET PO SCH ×3 (05:50→21:10)
[2018-06-15] MEDS: HYDROCODONE/ACETAMINOPHEN 5/325MG TABLET PO PRN ×2 (05:50→22:17)
[2018-06-15] MEDS: SODIUM CHLORIDE 0.45% 1,000 ML IV SCH ×2 (05:51→20:45)
[2018-06-15] MEDS: BLOOD SUGAR DIAGNOSTIC STRIP TEST SCH ×4 (05:51→21:06)
[2018-06-15 07:10] LABS: EOSINOPHILS % 0.8 % (0.0-5.0); HEMATOCRIT. 28.9 % (36.0-48.0); HEMOGLOBIN. 9.2 g/dL (12.0-16.0); LYMPHOCYTES % 11.2 % (20.0-50.0); MEAN CORPUSCULAR VOLUME 93.9 fL (81.0-99.0); MEAN PLATELET VOLUME 7.5 fl (7.4-10.4); MONOCYTES % 5.5 % (2.0-8.0); NEUTROPHILS % 81.5 % (40.0-76.0); PLATELET 207 x1000/uL (130-400); RED BLOOD CELL COUNT 3.08 mill/uL (4.2-5.4); RED CELL DISTRIBUTION WIDTH 17.4 % (11.6-14.6)
[2018-06-15] MEDS: INSULIN LISPRO 100 UNITS/ML SUBCUT SCH ×4 (07:20→21:08)
[2018-06-15 08:14] LABS: CHLORIDE 110 mEq/L (98-107)
[2018-06-15] MEDS: LEVETIRACETAM 250MG TABLET PO SCH (09:29)
[2018-06-15] MEDS: PREDNISONE 20MG TABLET PO SCH (09:29)
[2018-06-15] MEDS: FOLIC ACID 1MG TABLET PO SCH (09:29)
[2018-06-15] MEDS: GABAPENTIN 300MG CAPSULE PO SCH ×2 (09:29→17:34)
[2018-06-15] MEDS: TAMOXIFEN 10MG TABLET PO SCH (09:29)
[2018-06-15] MEDS: BENAZEPRIL 10MG TABLET PO SCH (09:30)
[2018-06-15] MEDS: PHENYTOIN SODIUM 200 MG in SODIUM CHLORIDE 0.9% 50 ML IV SCH ×2 (09:30→21:06)
[2018-06-15] MEDS: FAMOTIDINE 20MG TABLET PO SCH (09:30)
[2018-06-15] MEDS: FERROUS SULFATE 325MG TABLET PO SCH ×2 (09:30→17:34)
[2018-06-15] MEDS: TERBINAFINE HCL 1% CREAM 30GM TOP SCH (09:31)
[2018-06-15] MEDS: ACETAMINOPHEN 500MG TABLET PO PRN (14:51)
[2018-06-15 14:59] LABS: BG BASE EXCESS -0.5 mmol/L (-2.0-2.0); BG BILEVEL POS AIRWAY PRESSURE ST=15/5; BG CARBOXYHEMOGLOBIN 0.3 % (0.5-1.5); BG DEOXYHEMOGLOBIN 14.8 % (0.0-5.0); BG FRACTION INSPIRED OXYGEN 65; BG HCO3 ACT 24.6 mmol/L (22.0-26.0); BG METHEMOGLOBIN 0.1 % (0.0-1.5); BG OXYGEN SATURATION 85.1 % (92.0-98.5); BG OXYHEMOGLOBIN 84.8 % (94.0-97.0); BG PCO2 42.2 mmHg (35.0-45.0); BG PH 7.383 (7.350-7.450); BG PO2 52.1 mmHg (75.0-100.0); BG PRESSURE SUPPORT 10; BG SAMPLE SITE LEFT RADIAL; BG TOTAL HEMOGLOBIN 9.8 g/dL (12.0-18.0); BG VENT MODE MASK - BIPAP; BG VENT RATE 12 set
[2018-06-15] MEDS ORDERED: VANCOMYCIN 1250MG in DEXTROSE 5% WATER 250ML IV NR (16:00)
[2018-06-15] MEDS: CEFEPIME 1,000 MG in DEXTROSE 5% WATER 50 ML IV SCH (17:33)
[2018-06-15] MEDS: LEVETIRACETAM 500MG TABLET PO SCH (21:06)
[2018-06-15] MEDS: ATORVASTATIN CALCIUM 40MG TABLET PO SCH (21:06)
[2018-06-16] VITALS (24 sets, daily range): BP systolic 90–134; BP diastolic 35–81
[2018-06-16] MEDS: IPRATROPIUM/ALBUTEROL 0.5-3(2.5)MG/3ML NEB HHN SCH ×6 (00:43→21:22)
[2018-06-16] MEDS: VANCOMYCIN HCL 1000 MG/20 ML ORAL PO SCH ×4 (00:51→17:46)
[2018-06-16] MEDS: HYDROCODONE/ACETAMINOPHEN 5/325MG TABLET PO PRN ×2 (02:30→15:22)
[2018-06-16] MEDS: CEFEPIME 1,000 MG in DEXTROSE 5% WATER 50 ML IV SCH ×2 (03:56→15:34)
[2018-06-16] MEDS: SILDENAFIL CITRATE 20MG TABLET PO SCH ×3 (06:12→21:08)
[2018-06-16] MEDS: BLOOD SUGAR DIAGNOSTIC STRIP TEST SCH ×4 (06:12→20:15)
[2018-06-16] MEDS: INSULIN LISPRO 100 UNITS/ML SUBCUT SCH ×4 (07:01→20:15)
[2018-06-16 07:32] LABS: BASOPHILS % 0.9 % (0.0-2.0); HEMATOCRIT. 26.6 % (36.0-48.0); HEMOGLOBIN. 8.4 g/dL (12.0-16.0); MEAN CORPUSCULAR VOLUME 91.7 fL (81.0-99.0); MEAN PLATELET VOLUME 7.6 fl (7.4-10.4); MONOCYTES % 5.5 % (2.0-8.0); NEUTROPHILS % 84.6 % (40.0-76.0); PLATELET 205 x1000/uL (130-400); RED BLOOD CELL COUNT 2.89 mill/uL (4.2-5.4); RED CELL DISTRIBUTION WIDTH 17.4 % (11.6-14.6)
[2018-06-16 08:26] LABS: CHLORIDE 109 mEq/L (98-107)
[2018-06-16] MEDS: TERBINAFINE HCL 1% CREAM 30GM TOP SCH (09:00)
[2018-06-16] MEDS: BENAZEPRIL 10MG TABLET PO SCH (09:38)
[2018-06-16] MEDS: PREDNISONE 20MG TABLET PO SCH (09:39)
[2018-06-16] MEDS: GABAPENTIN 300MG CAPSULE PO SCH ×2 (09:39→17:46)
[2018-06-16] MEDS: FOLIC ACID 1MG TABLET PO SCH (09:39)
[2018-06-16] MEDS: FERROUS SULFATE 325MG TABLET PO SCH ×2 (09:39→17:46)
[2018-06-16] MEDS: FAMOTIDINE 20MG TABLET PO SCH (09:39)
[2018-06-16] MEDS: TAMOXIFEN 10MG TABLET PO SCH (09:41)
[2018-06-16] MEDS: PHENYTOIN SODIUM 200 MG in SODIUM CHLORIDE 0.9% 50 ML IV SCH ×2 (09:42→20:15)
[2018-06-16] MEDS: VANCOMYCIN 1 G PREMIX 200 ML IV SCH (09:43)
[2018-06-16] MEDS: LEVETIRACETAM 500MG TABLET PO SCH ×2 (09:45→20:46)
[2018-06-16] MEDS: ACETAMINOPHEN 500MG TABLET PO PRN ×2 (09:47→21:06)
[2018-06-16] MEDS ORDERED: FUROSEMIDE 40MG/4ML VIAL IVP SCH ×2 (11:00→20:00)
[2018-06-16 11:56] LABS: BG BASE EXCESS 2.7 mmol/L (-2.0-2.0); BG BILEVEL POS AIRWAY PRESSURE 15/5; BG CARBOXYHEMOGLOBIN 0.4 % (0.5-1.5); BG DEOXYHEMOGLOBIN 16.8 % (0.0-5.0); BG HCO3 ACT 28.1 mmol/L (22.0-26.0); BG METHEMOGLOBIN 0.1 % (0.0-1.5); BG OXYGEN SATURATION 83.1 % (92.0-98.5); BG OXYHEMOGLOBIN 82.7 % (94.0-97.0); BG PCO2 46.9 mmHg (35.0-45.0); BG PH 7.395 (7.350-7.450); BG PO2 49.2 mmHg (75.0-100.0); BG SAMPLE SITE RIGHT RADIAL; BG VENT MODE MASK - BIPAP; BG VENT RATE 12 set
[2018-06-16 13:03] LABS: BG BASE EXCESS 1.4 mmol/L (-2.0-2.0); BG BILEVEL POS AIRWAY PRESSURE 15/5; BG CARBOXYHEMOGLOBIN 0.1 % (0.5-1.5); BG DEOXYHEMOGLOBIN 3.5 % (0.0-5.0); BG METHEMOGLOBIN 0.3 % (0.0-1.5); BG OXYGEN SATURATION 96.5 % (92.0-98.5); BG OXYHEMOGLOBIN 96.1 % (94.0-97.0); BG PCO2 47.4 mmHg (35.0-45.0); BG PH 7.374 (7.350-7.450); BG PO2 95.9 mmHg (75.0-100.0); BG SAMPLE SITE RIGHT RADIAL; BG VENT MODE MASK - BIPAP; BG VENT RATE 12 set
[2018-06-16] MEDS ORDERED: LIDOCAINE HCL/PF 1% 2ML VIAL ONE (15:05)
[2018-06-16] MEDS: SODIUM CHLORIDE 0.45% 1,000 ML IV SCH (15:34)
[2018-06-16 19:10] LABS: BG BASE EXCESS 1.9 mmol/L (-2.0-2.0); BG BILEVEL POS AIRWAY PRESSURE 15/5; BG FRACTION INSPIRED OXYGEN 100; BG HCO3 ACT 26.6 mmol/L (22.0-26.0); BG METHEMOGLOBIN 0.1 % (0.0-1.5); BG OXYHEMOGLOBIN 97.9 % (94.0-97.0); BG PCO2 42.5 mmHg (35.0-45.0); BG PH 7.415 (7.350-7.450); BG PO2 123.3 mmHg (75.0-100.0); BG SAMPLE SITE RIGHT RADIAL; BG TOTAL HEMOGLOBIN 9.6 g/dL (12.0-18.0); BG VENT MODE MASK - BIPAP
[2018-06-16] MEDS: ATORVASTATIN CALCIUM 40MG TABLET PO SCH (20:44)
[2018-06-17] VITALS (50 sets, daily range): BP systolic 82–187; BP diastolic 37–128
[2018-06-17] MEDS: IPRATROPIUM/ALBUTEROL 0.5-3(2.5)MG/3ML NEB HHN SCH ×7 (00:23→20:06)
[2018-06-17] MEDS: HYDROCODONE/ACETAMINOPHEN 5/325MG TABLET PO PRN ×4 (01:57→22:12)
[2018-06-17] MEDS: CEFEPIME 1,000 MG in DEXTROSE 5% WATER 50 ML IV SCH ×2 (03:37→14:29)
[2018-06-17] MEDS: VANCOMYCIN 1 G PREMIX 200 ML IV SCH (04:37)
[2018-06-17 05:19] LABS: BASOPHILS % 1.1 % (0.0-2.0); EOSINOPHILS % 1.1 % (0.0-5.0); HEMATOCRIT. 27.7 % (36.0-48.0); HEMOGLOBIN. 8.9 g/dL (12.0-16.0); LYMPHOCYTES % 8.4 % (20.0-50.0); MEAN CORPUSCULAR HEMOGLOBIN 29.5 pg (28.0-32.0); MEAN CORPUSCULAR VOLUME 91.8 fL (81.0-99.0); MEAN PLATELET VOLUME 7.4 fl (7.4-10.4); MONOCYTES % 4.8 % (2.0-8.0); NEUTROPHILS % 84.6 % (40.0-76.0); PLATELET 222 x1000/uL (130-400); RED BLOOD CELL COUNT 3.02 mill/uL (4.2-5.4); RED CELL DISTRIBUTION WIDTH 17.2 % (11.6-14.6)
[2018-06-17 05:21] LABS: CHLORIDE 106 mEq/L (98-107)
[2018-06-17 05:24] LABS: PHOSPHORUS 3.7 mg/dL (2.5-4.9)
[2018-06-17] MEDS: INSULIN LISPRO 100 UNITS/ML SUBCUT SCH ×4 (05:53→21:13)
[2018-06-17] MEDS: BLOOD SUGAR DIAGNOSTIC STRIP TEST SCH ×4 (05:53→20:44)
[2018-06-17] MEDS: SILDENAFIL CITRATE 20MG TABLET PO SCH ×4 (05:58→21:12)
[2018-06-17] MEDS: VANCOMYCIN HCL 1000 MG/20 ML ORAL PO SCH ×5 (05:59→23:50)
[2018-06-17] MEDS ORDERED: FUROSEMIDE 100MG/10ML VIAL IVP SCH (06:45)
[2018-06-17] MEDS ORDERED: MAGNESIUM 4 G PREMIX 100 ML IV ONE (07:00)
[2018-06-17 07:33] LABS: BG BILEVEL POS AIRWAY PRESSURE 15/5; BG CARBOXYHEMOGLOBIN 0.3 % (0.5-1.5); BG DEOXYHEMOGLOBIN 9.6 % (0.0-5.0); BG FRACTION INSPIRED OXYGEN 80; BG HCO3 ACT 29.6 mmol/L (22.0-26.0); BG OXYGEN SATURATION 90.4 % (92.0-98.5); BG OXYHEMOGLOBIN 90.1 % (94.0-97.0); BG PCO2 50.2 mmHg (35.0-45.0); BG PH 7.388 (7.350-7.450); BG PO2 63.1 mmHg (75.0-100.0); BG SAMPLE SITE RIGHT RADIAL; BG TOTAL HEMOGLOBIN 8.9 g/dL (12.0-18.0); BG VENT MODE MASK - BIPAP
[2018-06-17] MEDS: BENAZEPRIL 10MG TABLET PO SCH (09:00)
[2018-06-17] MEDS: TERBINAFINE HCL 1% CREAM 30GM TOP SCH (09:00)
[2018-06-17] MEDS: PHENYTOIN SODIUM 200 MG in SODIUM CHLORIDE 0.9% 50 ML IV SCH ×2 (10:04→21:13)
[2018-06-17] MEDS: FERROUS SULFATE 325MG TABLET PO SCH ×2 (10:15→18:03)
[2018-06-17] MEDS: FOLIC ACID 1MG TABLET PO SCH (10:15)
[2018-06-17] MEDS: PANTOPRAZOLE SODIUM 40 MG/VIAL IV SCH (10:15)
[2018-06-17] MEDS: PREDNISONE 20MG TABLET PO SCH (10:15)
[2018-06-17] MEDS: GABAPENTIN 300MG CAPSULE PO SCH ×2 (10:15→18:03)
[2018-06-17] MEDS: LEVETIRACETAM 500MG TABLET PO SCH ×2 (10:16→21:00)
[2018-06-17] MEDS: TAMOXIFEN 10MG TABLET PO SCH (10:16)
[2018-06-17 11:50] LABS: BG BASE EXCESS 4.1 mmol/L (-2.0-2.0); BG CARBOXYHEMOGLOBIN 0.2 % (0.5-1.5); BG DEOXYHEMOGLOBIN 10.1 % (0.0-5.0); BG FRACTION INSPIRED OXYGEN 85; BG HCO3 ACT 29.8 mmol/L (22.0-26.0); BG METHEMOGLOBIN 0.2 % (0.0-1.5); BG OXYGEN SATURATION 89.9 % (92.0-98.5); BG OXYHEMOGLOBIN 89.5 % (94.0-97.0); BG PCO2 50.6 mmHg (35.0-45.0); BG PH 7.388 (7.350-7.450); BG PO2 63.1 mmHg (75.0-100.0); BG SAMPLE SITE RIGHT RADIAL; BG TOTAL HEMOGLOBIN 9.8 g/dL (12.0-18.0); BG VENT MODE MASK - BIPAP
[2018-06-17] MEDS ORDERED: IPRATROPIUM/ALBUTEROL 0.5-3(2.5)MG/3ML NEB HHN PRN (14:00)
[2018-06-17] MEDS: METHYLPREDNISOLONE SOD SUCC 40 MG/ML VIAL IV SCH ×2 (14:32→21:13)
[2018-06-17] MEDS ORDERED: IPRATROPIUM/ALBUTEROL 0.5-3(2.5)MG/3ML NEB HHN SCH (15:00)
[2018-06-17 17:18] LABS: BG BASE EXCESS 4.3 mmol/L (-2.0-2.0); BG BILEVEL POS AIRWAY PRESSURE 15/5; BG CARBOXYHEMOGLOBIN 0.3 % (0.5-1.5); BG DEOXYHEMOGLOBIN 8.7 % (0.0-5.0); BG FRACTION INSPIRED OXYGEN 85; BG HCO3 ACT 29.9 mmol/L (22.0-26.0); BG METHEMOGLOBIN 0.3 % (0.0-1.5); BG OXYGEN SATURATION 91.2 % (92.0-98.5); BG OXYHEMOGLOBIN 90.7 % (94.0-97.0); BG PCO2 50.1 mmHg (35.0-45.0); BG PH 7.394 (7.350-7.450); BG PO2 64.8 mmHg (75.0-100.0); BG SAMPLE SITE LEFT RADIAL; BG TOTAL HEMOGLOBIN 9.4 g/dL (12.0-18.0); BG VENT MODE MASK - BIPAP
[2018-06-17] MEDS: SODIUM HYPOCHLORITE 0.125% 473ML SOLUTION TOP SCH (18:06)
[2018-06-17 20:35] LABS: BG BASE EXCESS 2.4 mmol/L (-2.0-2.0); BG BILEVEL POS AIRWAY PRESSURE 15/5; BG CARBOXYHEMOGLOBIN 0.1 % (0.5-1.5); BG DEOXYHEMOGLOBIN 4.3 % (0.0-5.0); BG FRACTION INSPIRED OXYGEN 100; BG HCO3 ACT 27.7 mmol/L (22.0-26.0); BG METHEMOGLOBIN 0.1 % (0.0-1.5); BG OXYGEN SATURATION 95.7 % (92.0-98.5); BG OXYHEMOGLOBIN 95.5 % (94.0-97.0); BG PCO2 46.5 mmHg (35.0-45.0); BG PH 7.393 (7.350-7.450); BG PO2 91.5 mmHg (75.0-100.0); BG SAMPLE SITE RIGHT RADIAL; BG TOTAL HEMOGLOBIN 9.9 g/dL (12.0-18.0); BG VENT MODE MASK - BIPAP
[2018-06-17] MEDS: ATORVASTATIN CALCIUM 40MG TABLET PO SCH (21:00)
[2018-06-17] MEDS: LORAZEPAM 2MG/ML CPJ IV PRN (23:49)
[2018-06-17] MEDS: VANCOMYCIN 750 MG PREMIX 150 ML IV SCH (23:49)
[2018-06-18] VITALS (90 sets, daily range): BP systolic 75–140; BP diastolic 42–80
[2018-06-18 00:26] LABS: BG BASE EXCESS 1.2 mmol/L (-2.0-2.0); BG CARBOXYHEMOGLOBIN 0.3 % (0.5-1.5); BG DEOXYHEMOGLOBIN 14.3 % (0.0-5.0); BG FRACTION INSPIRED OXYGEN 100; BG HCO3 ACT 26.3 mmol/L (22.0-26.0); BG METHEMOGLOBIN 0.1 % (0.0-1.5); BG OXYGEN SATURATION 85.6 % (92.0-98.5); BG OXYHEMOGLOBIN 85.3 % (94.0-97.0); BG PCO2 43.7 mmHg (35.0-45.0); BG PH 7.397 (7.350-7.450); BG PO2 55.8 mmHg (75.0-100.0); BG SAMPLE SITE RIGHT RADIAL; BG TIDAL VOLUME(mL) 550 mL; BG TOTAL HEMOGLOBIN 10.5 g/dL (12.0-18.0); BG VENT MODE VENT - A/C; BG VENT RATE 14 set
[2018-06-18] MEDS ORDERED: IPRATROPIUM/ALBUTEROL 0.5-3(2.5)MG/3ML NEB HHN SCH (00:30)
[2018-06-18] MEDS ORDERED: DEXTROSE 50% WATER 50ML SYRINGE IV PRN (01:00)
[2018-06-18] MEDS: MORPHINE SULFATE 4 MG/ML CPJ (NOT FOR IM USE) IV PRN ×2 (01:28→07:35)
[2018-06-18] MEDS ORDERED: IPRATROPIUM/ALBUTEROL 0.5-3(2.5)MG/3ML NEB HHN NR (01:30)
[2018-06-18] MEDS ORDERED: FUROSEMIDE 100MG/10ML VIAL IVP NR (01:30)
[2018-06-18] MEDS: INSULIN LISPRO 100 UNITS/ML SUBCUT SCH ×4 (01:30→19:46)
[2018-06-18] MEDS: BLOOD SUGAR DIAGNOSTIC STRIP TEST SCH ×4 (02:10→18:00)
[2018-06-18] MEDS: CEFEPIME 1,000 MG in DEXTROSE 5% WATER 50 ML IV SCH ×2 (03:04→15:57)
[2018-06-18] MEDS: IPRATROPIUM/ALBUTEROL 0.5-3(2.5)MG/3ML NEB HHN SCH ×7 (03:55→23:00)
[2018-06-18 05:20] LABS: HEMATOCRIT. 26.6 % (36.0-48.0); HEMOGLOBIN. 8.8 g/dL (12.0-16.0); MEAN CORPUSCULAR HEMOGLOBIN 30.6 pg (28.0-32.0); MEAN CORPUSCULAR VOLUME 92.4 fL (81.0-99.0); MEAN PLATELET VOLUME 8.2 fl (7.4-10.4); PLATELET 203 x1000/uL (130-400); RED BLOOD CELL COUNT 2.88 mill/uL (4.2-5.4); RED CELL DISTRIBUTION WIDTH 17.2 % (11.6-14.6)
[2018-06-18 05:25] LABS: CHLORIDE 103 mEq/L (98-107)
[2018-06-18 05:34] LABS: PHOSPHORUS 3.2 mg/dL (2.5-4.9)
[2018-06-18] MEDS: METHYLPREDNISOLONE SOD SUCC 40 MG/ML VIAL IV SCH ×3 (05:34→21:29)
[2018-06-18] MEDS: VANCOMYCIN HCL 1000 MG/20 ML ORAL PO SCH ×2 (06:00→11:36)
[2018-06-18] MEDS: SILDENAFIL CITRATE 20MG TABLET PO SCH ×3 (06:00→21:29)
[2018-06-18 07:44] LABS: BG BASE EXCESS 4.1 mmol/L (-2.0-2.0); BG CARBOXYHEMOGLOBIN 0.1 % (0.5-1.5); BG DEOXYHEMOGLOBIN 15.2 % (0.0-5.0); BG HCO3 ACT 29.6 mmol/L (22.0-26.0); BG METHEMOGLOBIN 0.3 % (0.0-1.5); BG OXYGEN SATURATION 84.7 % (92.0-98.5); BG OXYHEMOGLOBIN 84.4 % (94.0-97.0); BG PCO2 49.3 mmHg (35.0-45.0); BG PH 7.396 (7.350-7.450); BG PO2 52.8 mmHg (75.0-100.0); BG SAMPLE SITE RIGHT RADIAL; BG TIDAL VOLUME(mL) 550 mL; BG TOTAL HEMOGLOBIN 8.6 g/dL (12.0-18.0); BG VENT MODE VENT - A/C; BG VENT RATE 14 set
[2018-06-18] MEDS: LORAZEPAM 2MG/ML CPJ IV PRN ×3 (07:58→17:07)
[2018-06-18] MEDS: FOLIC ACID 1MG TABLET PO SCH (08:02)
[2018-06-18] MEDS: PANTOPRAZOLE SODIUM 40 MG/VIAL IV SCH (08:02)
[2018-06-18] MEDS: FERROUS SULFATE 325MG TABLET PO SCH ×2 (08:02→17:06)
[2018-06-18] MEDS: LEVETIRACETAM 500MG TABLET PO SCH ×2 (08:03→21:29)
[2018-06-18] MEDS: GABAPENTIN 300MG CAPSULE PO SCH ×2 (08:03→17:06)
[2018-06-18 08:30] LABS: PLATELET ESTIMATE NORMAL
[2018-06-18] MEDS: PHENYTOIN SODIUM 200 MG in SODIUM CHLORIDE 0.9% 50 ML IV SCH ×2 (08:45→21:30)
[2018-06-18] MEDS: TAMOXIFEN 10MG TABLET PO SCH (08:45)
[2018-06-18] MEDS: BENAZEPRIL 10MG TABLET PO SCH (08:45)
[2018-06-18] MEDS: SODIUM HYPOCHLORITE 0.125% 473ML SOLUTION TOP SCH (09:14)
[2018-06-18] MEDS: TERBINAFINE HCL 1% CREAM 30GM TOP SCH (11:05)
[2018-06-18] MEDS: NOREPINEPHRINE 4 MG in DEXT 5% WATER 246 ML IV PRN (11:36)
[2018-06-18 14:14] LABS: BG BASE EXCESS 4.7 mmol/L (-2.0-2.0); BG DEOXYHEMOGLOBIN 7.7 % (0.0-5.0); BG HCO3 ACT 30.2 mmol/L (22.0-26.0); BG METHEMOGLOBIN 0.4 % (0.0-1.5); BG OXYGEN SATURATION 92.3 % (92.0-98.5); BG OXYHEMOGLOBIN 91.9 % (94.0-97.0); BG PCO2 50.3 mmHg (35.0-45.0); BG PH 7.396 (7.350-7.450); BG PO2 70.6 mmHg (75.0-100.0); BG SAMPLE SITE RIGHT RADIAL; BG TIDAL VOLUME(mL) 550 mL; BG TOTAL HEMOGLOBIN 8.7 g/dL (12.0-18.0); BG VENT MODE VENT - A/C; BG VENT RATE 14 set
[2018-06-18] MEDS ORDERED: ETOMIDATE 2MG/ML 10ML VIAL IV ONE (14:38)
[2018-06-18] MEDS ORDERED: SUCCINYLCHOLINE CHLORIDE 200MG/10ML IV ONE (14:38)
[2018-06-18] MEDS ORDERED: LIDOCAINE HCL/PF 1% 2ML VIAL ONE (15:30)
[2018-06-18] MEDS: VANCOMYCIN 750 MG PREMIX 150 ML IV SCH (17:06)
[2018-06-18] MEDS: ACETAMINOPHEN 325MG TABLET NG PRN (17:07)
[2018-06-18] MEDS: ATORVASTATIN CALCIUM 40MG TABLET PO SCH (21:29)
[2018-06-19] VITALS (108 sets, daily range): BP systolic 74–135; BP diastolic 41–87
[2018-06-19] MEDS: INSULIN LISPRO 100 UNITS/ML SUBCUT SCH ×5 (00:11→23:28)
[2018-06-19] MEDS: MORPHINE SULFATE 4 MG/ML CPJ (NOT FOR IM USE) IV PRN ×3 (01:19→20:05)
[2018-06-19] MEDS: IPRATROPIUM/ALBUTEROL 0.5-3(2.5)MG/3ML NEB HHN SCH ×6 (01:27→20:38)
[2018-06-19] MEDS: CEFEPIME 1,000 MG in DEXTROSE 5% WATER 50 ML IV SCH ×2 (02:32→15:27)
[2018-06-19] MEDS: NOREPINEPHRINE 4 MG in DEXT 5% WATER 246 ML IV PRN ×2 (02:33→21:11)
[2018-06-19] MEDS: METHYLPREDNISOLONE SOD SUCC 40 MG/ML VIAL IV SCH ×3 (05:23→21:12)
[2018-06-19] MEDS: SILDENAFIL CITRATE 20MG TABLET PO SCH ×3 (05:23→21:11)
[2018-06-19] MEDS: BLOOD SUGAR DIAGNOSTIC STRIP TEST SCH ×5 (05:37→23:25)
[2018-06-19 05:57] LABS: EOSINOPHILS % 0.8 % (0.0-5.0); HEMATOCRIT. 26.2 % (36.0-48.0); HEMOGLOBIN. 8.8 g/dL (12.0-16.0); MEAN CORPUSCULAR HEMOGLOBIN 32.3 pg (28.0-32.0); MEAN CORPUSCULAR VOLUME 96.2 fL (81.0-99.0); MEAN PLATELET VOLUME 7.4 fl (7.4-10.4); NEUTROPHILS % 82.2 % (40.0-76.0); PLATELET 228 x1000/uL (130-400); RED BLOOD CELL COUNT 2.72 mill/uL (4.2-5.4); RED CELL DISTRIBUTION WIDTH 16.8 % (11.6-14.6)
[2018-06-19 06:05] LABS: PHOSPHORUS 3.1 mg/dL (2.5-4.9)
[2018-06-19 08:07] LABS: BG BASE EXCESS 3.6 mmol/L (-2.0-2.0); BG CARBOXYHEMOGLOBIN 0.4 % (0.5-1.5); BG DEOXYHEMOGLOBIN 10.7 % (0.0-5.0); BG HCO3 ACT 28.3 mmol/L (22.0-26.0); BG METHEMOGLOBIN 0.2 % (0.0-1.5); BG OXYGEN SATURATION 89.2 % (92.0-98.5); BG OXYHEMOGLOBIN 88.7 % (94.0-97.0); BG PCO2 43.4 mmHg (35.0-45.0); BG PH 7.432 (7.350-7.450); BG SAMPLE SITE RIGHT RADIAL; BG TIDAL VOLUME(mL) 550 mL; BG TOTAL HEMOGLOBIN 8.9 g/dL (12.0-18.0); BG VENT MODE VENT - A/C; BG VENT RATE 18 set
[2018-06-19] MEDS: BENAZEPRIL 10MG TABLET PO SCH (09:00)
[2018-06-19] MEDS: PANTOPRAZOLE SODIUM 40 MG/VIAL IV SCH (09:48)
[2018-06-19] MEDS: GABAPENTIN 300MG CAPSULE PO SCH ×2 (09:48→17:51)
[2018-06-19] MEDS: PHENYTOIN SODIUM 200 MG in SODIUM CHLORIDE 0.9% 50 ML IV SCH ×2 (09:48→21:10)
[2018-06-19] MEDS: LEVETIRACETAM 500MG TABLET PO SCH ×2 (09:48→20:05)
[2018-06-19] MEDS: LORAZEPAM 2MG/ML CPJ IV PRN ×2 (09:48→15:13)
[2018-06-19] MEDS: FERROUS SULFATE 325MG TABLET PO SCH ×2 (09:48→17:51)
[2018-06-19] MEDS: FOLIC ACID 1MG TABLET PO SCH (09:48)
[2018-06-19] MEDS: SODIUM HYPOCHLORITE 0.125% 473ML SOLUTION TOP SCH (10:01)
[2018-06-19] MEDS: TAMOXIFEN 10MG TABLET PO SCH (10:01)
[2018-06-19] MEDS: TERBINAFINE HCL 1% CREAM 30GM TOP SCH (10:01)
[2018-06-19] MEDS: VANCOMYCIN 750 MG PREMIX 150 ML IV SCH (11:50)
[2018-06-19] MEDS: VANCOMYCIN HCL 1000 MG/20 ML ORAL PO SCH ×2 (17:51→23:20)
[2018-06-19] MEDS: ATORVASTATIN CALCIUM 40MG TABLET PO SCH (20:05)
[2018-06-19] MEDS: ACETAMINOPHEN 325MG TABLET NG PRN (20:05)
[2018-06-20] VITALS (88 sets, daily range): BP systolic 82–144; BP diastolic 30–95
[2018-06-20] MEDS: IPRATROPIUM/ALBUTEROL 0.5-3(2.5)MG/3ML NEB HHN SCH ×8 (01:06→23:30)
[2018-06-20] MEDS: LORAZEPAM 2MG/ML CPJ IV PRN ×2 (03:23→19:27)
[2018-06-20] MEDS: CEFEPIME 1,000 MG in DEXTROSE 5% WATER 50 ML IV SCH ×2 (03:23→15:10)
[2018-06-20 05:38] LABS: BASOPHILS % 1.3 % (0.0-2.0); EOSINOPHILS % 0.8 % (0.0-5.0); HEMATOCRIT. 27.4 % (36.0-48.0); HEMOGLOBIN. 8.8 g/dL (12.0-16.0); LYMPHOCYTES % 10.4 % (20.0-50.0); MEAN CORPUSCULAR HEMOGLOBIN 29.3 pg (28.0-32.0); MEAN PLATELET VOLUME 7.9 fl (7.4-10.4); MONOCYTES % 4.9 % (2.0-8.0); NEUTROPHILS % 82.6 % (40.0-76.0); PLATELET 224 x1000/uL (130-400); RED BLOOD CELL COUNT 2.98 mill/uL (4.2-5.4); RED CELL DISTRIBUTION WIDTH 16.9 % (11.6-14.6)
[2018-06-20 06:00] LABS: VANCOMYCIN TROUGH 20.5 ug/mL (5.0-10.0)
[2018-06-20] MEDS: BLOOD SUGAR DIAGNOSTIC STRIP TEST SCH ×4 (06:00→23:37)
[2018-06-20] MEDS: VANCOMYCIN 750 MG PREMIX 150 ML IV SCH (06:05)
[2018-06-20] MEDS: VANCOMYCIN HCL 1000 MG/20 ML ORAL PO SCH ×4 (06:05→23:40)
[2018-06-20] MEDS: SILDENAFIL CITRATE 20MG TABLET PO SCH ×3 (06:06→21:51)
[2018-06-20] MEDS: METHYLPREDNISOLONE SOD SUCC 40 MG/ML VIAL IV SCH ×3 (06:07→21:51)
[2018-06-20] MEDS: INSULIN LISPRO 100 UNITS/ML SUBCUT SCH ×4 (06:12→23:42)
[2018-06-20] MEDS: FERROUS SULFATE 325MG TABLET PO SCH ×2 (08:32→17:57)
[2018-06-20] MEDS: PHENYTOIN SODIUM 200 MG in SODIUM CHLORIDE 0.9% 50 ML IV SCH ×2 (08:32→21:51)
[2018-06-20] MEDS: FOLIC ACID 1MG TABLET PO SCH (08:32)
[2018-06-20] MEDS: PANTOPRAZOLE SODIUM 40 MG/VIAL IV SCH (08:32)
[2018-06-20] MEDS: LEVETIRACETAM 500MG TABLET PO SCH ×2 (08:33→21:51)
[2018-06-20] MEDS: TAMOXIFEN 10MG TABLET PO SCH (08:33)
[2018-06-20] MEDS: GABAPENTIN 300MG CAPSULE PO SCH ×2 (08:33→17:57)
[2018-06-20] MEDS: TERBINAFINE HCL 1% CREAM 30GM TOP SCH (08:34)
[2018-06-20] MEDS: BENAZEPRIL 10MG TABLET PO SCH (08:35)
[2018-06-20 09:23] LABS: BG BASE EXCESS 2.7 mmol/L (-2.0-2.0); BG CARBOXYHEMOGLOBIN 0.6 % (0.5-1.5); BG DEOXYHEMOGLOBIN 16.8 % (0.0-5.0); BG FRACTION INSPIRED OXYGEN 100; BG HCO3 ACT 27.5 mmol/L (22.0-26.0); BG METHEMOGLOBIN 0.1 % (0.0-1.5); BG OXYGEN SATURATION 83.1 % (92.0-98.5); BG OXYHEMOGLOBIN 82.5 % (94.0-97.0); BG PCO2 43.6 mmHg (35.0-45.0); BG PH 7.418 (7.350-7.450); BG PO2 51.3 mmHg (75.0-100.0); BG SAMPLE SITE RIGHT RADIAL; BG TIDAL VOLUME(mL) 550 mL; BG TOTAL HEMOGLOBIN 8.9 g/dL (12.0-18.0); BG VENT MODE VENT - A/C; BG VENT RATE 18 set
[2018-06-20 10:01] LABS: PHOSPHORUS 2.5 mg/dL (2.5-4.9)
[2018-06-20] MEDS: MORPHINE SULFATE 4 MG/ML CPJ (NOT FOR IM USE) IV PRN ×2 (11:20→16:43)
[2018-06-20 14:25] LABS: BG BASE EXCESS 2.2 mmol/L (-2.0-2.0); BG DEOXYHEMOGLOBIN 12.2 % (0.0-5.0); BG FRACTION INSPIRED OXYGEN 100; BG HCO3 ACT 27.1 mmol/L (22.0-26.0); BG METHEMOGLOBIN 0.5 % (0.0-1.5); BG OXYGEN SATURATION 87.7 % (92.0-98.5); BG OXYHEMOGLOBIN 87.3 % (94.0-97.0); BG PCO2 43.8 mmHg (35.0-45.0); BG PH 7.409 (7.350-7.450); BG PO2 58.3 mmHg (75.0-100.0); BG SAMPLE SITE RIGHT RADIAL; BG TIDAL VOLUME(mL) 550 mL; BG TOTAL HEMOGLOBIN 8.7 g/dL (12.0-18.0); BG VENT MODE VENT - A/C; BG VENT RATE 18 set
[2018-06-20] MEDS: SODIUM HYPOCHLORITE 0.125% 473ML SOLUTION TOP SCH (15:10)
[2018-06-20 20:03] LABS: BG BASE EXCESS 1.7 mmol/L (-2.0-2.0); BG CARBOXYHEMOGLOBIN 0.2 % (0.5-1.5); BG DEOXYHEMOGLOBIN 11.6 % (0.0-5.0); BG FRACTION INSPIRED OXYGEN 100; BG HCO3 ACT 26.2 mmol/L (22.0-26.0); BG METHEMOGLOBIN 0.2 % (0.0-1.5); BG OXYGEN SATURATION 88.4 % (92.0-98.5); BG PCO2 40.7 mmHg (35.0-45.0); BG PH 7.427 (7.350-7.450); BG SAMPLE SITE RIGHT RADIAL; BG TIDAL VOLUME(mL) 550 mL; BG TOTAL HEMOGLOBIN 11.4 g/dL (12.0-18.0); BG VENT MODE VENT - A/C; BG VENT RATE 18 set
[2018-06-20] MEDS: ATORVASTATIN CALCIUM 40MG TABLET PO SCH (21:51)
[2018-06-20] MEDS: NOREPINEPHRINE 4 MG in DEXT 5% WATER 246 ML IV PRN (23:41)
[2018-06-20] MEDS: ACETAMINOPHEN 325MG TABLET NG PRN (23:44)
[2018-06-21] VITALS (60 sets, daily range): BP systolic 56–146; BP diastolic 26–76
[2018-06-21] MEDS ORDERED: VANCOMYCIN 1 G PREMIX 200 ML IV SCH
[2018-06-21] MEDS: LORAZEPAM 2MG/ML CPJ IV PRN ×2 (01:23→09:51)
[2018-06-21] MEDS: IPRATROPIUM/ALBUTEROL 0.5-3(2.5)MG/3ML NEB HHN SCH ×7 (02:08→20:36)
[2018-06-21] MEDS: CEFEPIME 1,000 MG in DEXTROSE 5% WATER 50 ML IV SCH ×2 (03:19→15:27)
[2018-06-21] MEDS: BLOOD SUGAR DIAGNOSTIC STRIP TEST SCH ×3 (06:00→18:21)
[2018-06-21 06:01] LABS: PHOSPHORUS 3.1 mg/dL (2.5-4.9)
[2018-06-21] MEDS: METHYLPREDNISOLONE SOD SUCC 40 MG/ML VIAL IV SCH ×3 (06:08→21:49)
[2018-06-21] MEDS: VANCOMYCIN HCL 1000 MG/20 ML ORAL PO SCH ×3 (06:08→17:06)
[2018-06-21] MEDS: SILDENAFIL CITRATE 20MG TABLET PO SCH ×3 (06:08→21:52)
[2018-06-21] MEDS: INSULIN LISPRO 100 UNITS/ML SUBCUT SCH ×3 (06:14→18:24)
[2018-06-21 07:30] LABS: BG BASE EXCESS 2.2 mmol/L (-2.0-2.0); BG CARBOXYHEMOGLOBIN 0.6 % (0.5-1.5); BG DEOXYHEMOGLOBIN 5.9 % (0.0-5.0); BG FRACTION INSPIRED OXYGEN 100; BG HCO3 ACT 27.5 mmol/L (22.0-26.0); BG METHEMOGLOBIN 0.4 % (0.0-1.5); BG OXYHEMOGLOBIN 93.1 % (94.0-97.0); BG PCO2 46.6 mmHg (35.0-45.0); BG PH 7.389 (7.350-7.450); BG PO2 74.7 mmHg (75.0-100.0); BG SAMPLE SITE RIGHT RADIAL; BG TIDAL VOLUME(mL) 550 mL; BG VENT MODE VENT - A/C; BG VENT RATE 18 set
[2018-06-21] MEDS: PHENYTOIN SODIUM 200 MG in SODIUM CHLORIDE 0.9% 50 ML IV SCH ×2 (08:42→21:52)
[2018-06-21] MEDS: PANTOPRAZOLE SODIUM 40 MG/VIAL IV SCH (08:42)
[2018-06-21] MEDS: FOLIC ACID 1MG TABLET PO SCH (08:43)
[2018-06-21] MEDS: FERROUS SULFATE 325MG TABLET PO SCH ×2 (08:43→16:56)
[2018-06-21] MEDS: BENAZEPRIL 10MG TABLET PO SCH (08:43)
[2018-06-21] MEDS: LEVETIRACETAM 500MG TABLET PO SCH ×2 (08:43→21:52)
[2018-06-21] MEDS: GABAPENTIN 300MG CAPSULE PO SCH ×2 (08:43→16:56)
[2018-06-21] MEDS: TAMOXIFEN 10MG TABLET PO SCH (12:01)
[2018-06-21] MEDS: TERBINAFINE HCL 1% CREAM 30GM TOP SCH (12:01)
[2018-06-21] MEDS: SODIUM HYPOCHLORITE 0.125% 473ML SOLUTION TOP SCH (12:02)
[2018-06-21 15:57] LABS: BG BASE EXCESS 3.8 mmol/L (-2.0-2.0); BG CARBOXYHEMOGLOBIN 0.2 % (0.5-1.5); BG DEOXYHEMOGLOBIN 11.7 % (0.0-5.0); BG HCO3 ACT 28.3 mmol/L (22.0-26.0); BG METHEMOGLOBIN 0.4 % (0.0-1.5); BG OXYGEN SATURATION 88.2 % (92.0-98.5); BG OXYHEMOGLOBIN 87.7 % (94.0-97.0); BG PCO2 42.5 mmHg (35.0-45.0); BG PH 7.442 (7.350-7.450); BG SAMPLE SITE RIGHT BRACHIAL; BG TIDAL VOLUME(mL) 600 mL; BG TOTAL HEMOGLOBIN 10.3 g/dL (12.0-18.0); BG VENT MODE VENT - A/C; BG VENT RATE 18 set
[2018-06-21] MEDS: ATORVASTATIN CALCIUM 40MG TABLET PO SCH (21:50)
[2018-06-22] VITALS (94 sets, daily range): BP systolic 86–165; BP diastolic 18–95
[2018-06-22] MEDS: INSULIN LISPRO 100 UNITS/ML SUBCUT SCH ×5 (00:16→23:18)
[2018-06-22] MEDS: BLOOD SUGAR DIAGNOSTIC STRIP TEST SCH ×5 (00:17→23:15)
[2018-06-22] MEDS: VANCOMYCIN HCL 1000 MG/20 ML ORAL PO SCH ×4 (00:17→17:15)
[2018-06-22] MEDS: IPRATROPIUM/ALBUTEROL 0.5-3(2.5)MG/3ML NEB HHN SCH ×9 (00:22→22:25)
[2018-06-22] MEDS: MORPHINE SULFATE 4 MG/ML CPJ (NOT FOR IM USE) IV PRN ×4 (03:00→21:01)
[2018-06-22] MEDS: CEFEPIME 1,000 MG in DEXTROSE 5% WATER 50 ML IV SCH ×2 (03:56→15:17)
[2018-06-22 05:55] LABS: BASOPHILS % 0.9 % (0.0-2.0); EOSINOPHILS % 1.9 % (0.0-5.0); HEMATOCRIT. 25.1 % (36.0-48.0); HEMOGLOBIN. 8.2 g/dL (12.0-16.0); LYMPHOCYTES % 9.5 % (20.0-50.0); MEAN CORPUSCULAR HEMOGLOBIN 29.9 pg (28.0-32.0); MEAN CORPUSCULAR VOLUME 91.9 fL (81.0-99.0); MEAN PLATELET VOLUME 8.1 fl (7.4-10.4); MONOCYTES % 8.3 % (2.0-8.0); NEUTROPHILS % 79.4 % (40.0-76.0); PLATELET 254 x1000/uL (130-400); RED BLOOD CELL COUNT 2.73 mill/uL (4.2-5.4); RED CELL DISTRIBUTION WIDTH 16.6 % (11.6-14.6)
[2018-06-22 05:59] LABS: PHOSPHORUS 2.5 mg/dL (2.5-4.9)
[2018-06-22] MEDS: SILDENAFIL CITRATE 20MG TABLET PO SCH ×3 (06:34→21:02)
[2018-06-22] MEDS: METHYLPREDNISOLONE SOD SUCC 40 MG/ML VIAL IV SCH ×3 (06:34→21:02)
[2018-06-22 08:27] LABS: BG CARBOXYHEMOGLOBIN 0.6 % (0.5-1.5); BG DEOXYHEMOGLOBIN 15.8 % (0.0-5.0); BG FRACTION INSPIRED OXYGEN 100; BG HCO3 ACT 27.6 mmol/L (22.0-26.0); BG METHEMOGLOBIN 0.5 % (0.0-1.5); BG OXYHEMOGLOBIN 83.1 % (94.0-97.0); BG PCO2 42.9 mmHg (35.0-45.0); BG PH 7.427 (7.350-7.450); BG PO2 50.4 mmHg (75.0-100.0); BG SAMPLE SITE RIGHT BRACHIAL; BG TIDAL VOLUME(mL) 600 mL; BG TOTAL HEMOGLOBIN 8.8 g/dL (12.0-18.0); BG VENT MODE VENT - A/C; BG VENT RATE 18 set
[2018-06-22] MEDS: BENAZEPRIL 10MG TABLET PO SCH (09:00)
[2018-06-22] MEDS: LACTOBACILLUS GG CAPSULE PO SCH (09:16)
[2018-06-22] MEDS: PANTOPRAZOLE SODIUM 40 MG/VIAL IV SCH (09:16)
[2018-06-22] MEDS: LEVETIRACETAM 500MG TABLET PO SCH ×2 (09:16→20:27)
[2018-06-22] MEDS: FERROUS SULFATE 325MG TABLET PO SCH ×2 (09:16→17:15)
[2018-06-22] MEDS: GABAPENTIN 300MG CAPSULE PO SCH ×2 (09:16→17:16)
[2018-06-22] MEDS: PHENYTOIN 100 MG/4 ML UDC NG SCH ×2 (09:16→17:15)
[2018-06-22] MEDS: FOLIC ACID 1MG TABLET PO SCH (09:16)
[2018-06-22] MEDS: TAMOXIFEN 10MG TABLET PO SCH (09:17)
[2018-06-22] MEDS: SODIUM HYPOCHLORITE 0.125% 473ML SOLUTION TOP SCH (09:17)
[2018-06-22] MEDS: TERBINAFINE HCL 1% CREAM 30GM TOP SCH (09:19)
[2018-06-22] MEDS: ENOXAPARIN 30MG/0.3ML SYR SUBCUT SCH ×2 (11:38→23:18)
[2018-06-22 19:20] LABS: BG BASE EXCESS 1.7 mmol/L (-2.0-2.0); BG CARBOXYHEMOGLOBIN 0.2 % (0.5-1.5); BG DEOXYHEMOGLOBIN 11.1 % (0.0-5.0); BG FRACTION INSPIRED OXYGEN 100; BG HCO3 ACT 26.7 mmol/L (22.0-26.0); BG METHEMOGLOBIN 0.5 % (0.0-1.5); BG OXYGEN SATURATION 88.8 % (92.0-98.5); BG OXYHEMOGLOBIN 88.2 % (94.0-97.0); BG PCO2 44.1 mmHg (35.0-45.0); BG PO2 60.1 mmHg (75.0-100.0); BG SAMPLE SITE RIGHT RADIAL; BG TIDAL VOLUME(mL) 600 mL; BG TOTAL HEMOGLOBIN 9.2 g/dL (12.0-18.0); BG VENT MODE VENT - A/C; BG VENT RATE 18 set
[2018-06-22] MEDS: ATORVASTATIN CALCIUM 40MG TABLET PO SCH (20:26)
[2018-06-22] MEDS ORDERED: MORPHINE SULFATE 4 MG/ML CPJ (NOT FOR IM USE) IV PRN (23:45)
[2018-06-22] MEDS ORDERED: LORAZEPAM 2MG/ML CPJ IV PRN (23:45)
[2018-06-23] VITALS (96 sets, daily range): BP systolic 89–137; BP diastolic 44–81
[2018-06-23] MEDS: IPRATROPIUM/ALBUTEROL 0.5-3(2.5)MG/3ML NEB HHN SCH ×8 (02:04→19:25)
[2018-06-23] MEDS: SILDENAFIL CITRATE 20MG TABLET PO SCH ×3 (05:23→22:01)
[2018-06-23] MEDS: METHYLPREDNISOLONE SOD SUCC 40 MG/ML VIAL IV SCH ×3 (05:23→21:57)
[2018-06-23] MEDS: BLOOD SUGAR DIAGNOSTIC STRIP TEST SCH ×4 (05:23→23:36)
[2018-06-23] MEDS: INSULIN LISPRO 100 UNITS/ML SUBCUT SCH ×4 (05:25→23:40)
[2018-06-23] MEDS: LORAZEPAM 2MG/ML CPJ IV PRN (05:25)
[2018-06-23 06:33] LABS: PHOSPHORUS 3.6 mg/dL (2.5-4.9)
[2018-06-23 08:29] LABS: BG BASE EXCESS 3.7 mmol/L (-2.0-2.0); BG CARBOXYHEMOGLOBIN 0.5 % (0.5-1.5); BG DEOXYHEMOGLOBIN 26.2 % (0.0-5.0); BG FRACTION INSPIRED OXYGEN 100; BG HCO3 ACT 28.4 mmol/L (22.0-26.0); BG METHEMOGLOBIN 0.3 % (0.0-1.5); BG OXYGEN SATURATION 73.6 % (92.0-98.5); BG PCO2 43.5 mmHg (35.0-45.0); BG PH 7.432 (7.350-7.450); BG PO2 40.9 mmHg (75.0-100.0); BG SAMPLE SITE RIGHT BRACHIAL; BG TIDAL VOLUME(mL) 600 mL; BG TOTAL HEMOGLOBIN 9.1 g/dL (12.0-18.0); BG VENT MODE VENT - A/C; BG VENT RATE 18 set
[2018-06-23] MEDS: FERROUS SULFATE 325MG TABLET PO SCH ×2 (08:31→17:29)
[2018-06-23] MEDS: PANTOPRAZOLE SODIUM 40 MG/VIAL IV SCH (08:31)
[2018-06-23] MEDS: BENAZEPRIL 10MG TABLET PO SCH (08:31)
[2018-06-23] MEDS: LEVETIRACETAM 500MG TABLET PO SCH ×2 (08:31→20:23)
[2018-06-23] MEDS: FOLIC ACID 1MG TABLET PO SCH (08:31)
[2018-06-23] MEDS: LACTOBACILLUS GG CAPSULE PO SCH (08:31)
[2018-06-23] MEDS: GABAPENTIN 300MG CAPSULE PO SCH ×2 (08:31→17:29)
[2018-06-23] MEDS: PHENYTOIN 100 MG/4 ML UDC NG SCH ×2 (08:31→17:28)
[2018-06-23] MEDS: SODIUM HYPOCHLORITE 0.125% 473ML SOLUTION TOP SCH (08:33)
[2018-06-23] MEDS: TERBINAFINE HCL 1% CREAM 30GM TOP SCH (08:33)
[2018-06-23] MEDS: TAMOXIFEN 10MG TABLET PO SCH (08:36)
[2018-06-23] MEDS: ENOXAPARIN 30MG/0.3ML SYR SUBCUT SCH (11:41)
[2018-06-23 14:19] LABS: BG BASE EXCESS 2.6 mmol/L (-2.0-2.0); BG CARBOXYHEMOGLOBIN 0.4 % (0.5-1.5); BG DEOXYHEMOGLOBIN 16.4 % (0.0-5.0); BG FRACTION INSPIRED OXYGEN 100; BG HCO3 ACT 27.4 mmol/L (22.0-26.0); BG METHEMOGLOBIN 0.2 % (0.0-1.5); BG OXYGEN SATURATION 83.5 % (92.0-98.5); BG PCO2 43.5 mmHg (35.0-45.0); BG PH 7.417 (7.350-7.450); BG PO2 51.3 mmHg (75.0-100.0); BG SAMPLE SITE RIGHT RADIAL; BG TIDAL VOLUME(mL) 600 mL; BG TOTAL HEMOGLOBIN 8.8 g/dL (12.0-18.0); BG VENT MODE VENT - A/C; BG VENT RATE 18 set
[2018-06-23 15:40] LABS: BASOPHILS % 1.5 % (0.0-2.0); HEMATOCRIT. 27.2 % (36.0-48.0); HEMOGLOBIN. 8.7 g/dL (12.0-16.0); LYMPHOCYTES % 9.6 % (20.0-50.0); MEAN CORPUSCULAR HEMOGLOBIN 29.5 pg (28.0-32.0); MEAN PLATELET VOLUME 8.2 fl (7.4-10.4); MONOCYTES % 8.3 % (2.0-8.0); NEUTROPHILS % 78.6 % (40.0-76.0); PLATELET 232 x1000/uL (130-400); RED BLOOD CELL COUNT 2.96 mill/uL (4.2-5.4)
[2018-06-23 15:45] LABS: PHOSPHORUS 3.5 mg/dL (2.5-4.9)
[2018-06-23] MEDS ORDERED: DEXTROSE 50% WATER 50ML SYRINGE IV PRN (19:00)
[2018-06-23] MEDS: ATORVASTATIN CALCIUM 40MG TABLET PO SCH (20:23)
[2018-06-23] MEDS: MORPHINE SULFATE 4 MG/ML CPJ (NOT FOR IM USE) IV PRN (20:23)
[2018-06-24] VITALS (65 sets, daily range): BP systolic 81–146; BP diastolic 38–76
[2018-06-24] MEDS: LORAZEPAM 2MG/ML CPJ IV PRN ×2 (01:11→13:36)
[2018-06-24] MEDS: IPRATROPIUM/ALBUTEROL 0.5-3(2.5)MG/3ML NEB HHN SCH ×6 (02:07→20:20)
[2018-06-24] MEDS: BLOOD SUGAR DIAGNOSTIC STRIP TEST SCH ×3 (05:51→18:00)
[2018-06-24] MEDS: SILDENAFIL CITRATE 20MG TABLET PO SCH ×3 (06:04→21:40)
[2018-06-24] MEDS: METHYLPREDNISOLONE SOD SUCC 40 MG/ML VIAL IV SCH ×3 (06:04→21:39)
[2018-06-24] MEDS: INSULIN LISPRO 100 UNITS/ML SUBCUT SCH ×3 (06:05→19:02)
[2018-06-24] MEDS: PHENYTOIN 100 MG/4 ML UDC NG SCH ×2 (08:22→19:00)
[2018-06-24] MEDS: TAMOXIFEN 10MG TABLET PO SCH (08:23)
[2018-06-24] MEDS: PANTOPRAZOLE SODIUM 40 MG/VIAL IV SCH (08:23)
[2018-06-24] MEDS: GABAPENTIN 300MG CAPSULE PO SCH ×2 (08:23→19:00)
[2018-06-24] MEDS: FOLIC ACID 1MG TABLET PO SCH (08:25)
[2018-06-24] MEDS: LEVETIRACETAM 500MG TABLET PO SCH ×2 (08:25→21:39)
[2018-06-24] MEDS: LACTOBACILLUS GG CAPSULE PO SCH (08:25)
[2018-06-24] MEDS: FERROUS SULFATE 325MG TABLET PO SCH ×2 (08:25→19:00)
[2018-06-24 08:56] LABS: BG BASE EXCESS 4.3 mmol/L (-2.0-2.0); BG CARBOXYHEMOGLOBIN 0.6 % (0.5-1.5); BG DEOXYHEMOGLOBIN 14.1 % (0.0-5.0); BG FRACTION INSPIRED OXYGEN 100; BG HCO3 ACT 29.3 mmol/L (22.0-26.0); BG OXYGEN SATURATION 85.8 % (92.0-98.5); BG OXYHEMOGLOBIN 85.3 % (94.0-97.0); BG PCO2 45.5 mmHg (35.0-45.0); BG PH 7.426 (7.350-7.450); BG PO2 55.2 mmHg (75.0-100.0); BG SAMPLE SITE RIGHT RADIAL; BG TIDAL VOLUME(mL) 600 mL; BG TOTAL HEMOGLOBIN 9.3 g/dL (12.0-18.0); BG VENT MODE VENT - A/C; BG VENT RATE 18 set
[2018-06-24] MEDS: BENAZEPRIL 10MG TABLET PO SCH (09:00)
[2018-06-24] MEDS ORDERED: ENOXAPARIN 40MG/0.4ML SYR SUBCUT SCH (09:00)
[2018-06-24 16:38] LABS: HEMATOCRIT 27.8 % (36.0-48.0); HEMOGLOBIN 8.8 g/dL (12.0-16.0); MEAN CORPUSCULAR HEMOGLOBIN 29.1 pg (28.0-32.0); MEAN CORPUSCULAR VOLUME 91.8 fL (81.0-99.0); PLATELET 290 x1000/uL (130-400); RED BLOOD CELL COUNT 3.03 mill/uL (4.2-5.4); RED CELL DISTRIBUTION WIDTH 17.1 % (11.6-14.6)
[2018-06-24 16:54] LABS: CHLORIDE 102 mEq/L (98-107)
[2018-06-24 17:03] LABS: PHOSPHORUS 3.3 mg/dL (2.5-4.9)
[2018-06-24] MEDS: ATORVASTATIN CALCIUM 40MG TABLET PO SCH (21:39)
[2018-06-25] VITALS (27 sets, daily range): BP systolic 85–141; BP diastolic 48–78
[2018-06-25] MEDS: BLOOD SUGAR DIAGNOSTIC STRIP TEST SCH ×4 (00:21→18:15)
[2018-06-25] MEDS: INSULIN LISPRO 100 UNITS/ML SUBCUT SCH ×4 (00:27→18:19)
[2018-06-25] MEDS: ACETAMINOPHEN 325MG TABLET NG PRN ×2 (00:32→09:18)
[2018-06-25] MEDS: IPRATROPIUM/ALBUTEROL 0.5-3(2.5)MG/3ML NEB HHN SCH ×9 (00:48→23:56)
[2018-06-25 05:49] LABS: BASOPHILS % 1.1 % (0.0-2.0); EOSINOPHILS % 1.8 % (0.0-5.0); HEMATOCRIT. 26.8 % (36.0-48.0); HEMOGLOBIN. 8.6 g/dL (12.0-16.0); LYMPHOCYTES % 9.1 % (20.0-50.0); MEAN CORPUSCULAR HEMOGLOBIN 29.7 pg (28.0-32.0); MEAN CORPUSCULAR VOLUME 92.3 fL (81.0-99.0); MEAN PLATELET VOLUME 8.5 fl (7.4-10.4); MONOCYTES % 8.3 % (2.0-8.0); NEUTROPHILS % 79.7 % (40.0-76.0); PLATELET 310 x1000/uL (130-400); RED CELL DISTRIBUTION WIDTH 16.9 % (11.6-14.6)
[2018-06-25] MEDS: METHYLPREDNISOLONE SOD SUCC 40 MG/ML VIAL IV SCH ×3 (05:57→21:32)
[2018-06-25] MEDS: SILDENAFIL CITRATE 20MG TABLET PO SCH ×3 (05:58→21:32)
[2018-06-25] MEDS: PANTOPRAZOLE SODIUM 40 MG/VIAL IV SCH (08:18)
[2018-06-25] MEDS: TAMOXIFEN 10MG TABLET PO SCH (08:18)
[2018-06-25] MEDS: LORAZEPAM 2MG/ML CPJ IV PRN (08:18)
[2018-06-25] MEDS: DIPHENHYDRAMINE 50MG/ML VIAL IV PRN (08:18)
[2018-06-25] MEDS: FOLIC ACID 1MG TABLET PO SCH (08:19)
[2018-06-25] MEDS: FERROUS SULFATE 325MG TABLET PO SCH ×2 (08:19→18:15)
[2018-06-25] MEDS: LACTOBACILLUS GG CAPSULE PO SCH (08:19)
[2018-06-25] MEDS: PHENYTOIN 100 MG/4 ML UDC NG SCH ×2 (08:19→18:15)
[2018-06-25 08:28] LABS: BG BASE EXCESS 4.7 mmol/L (-2.0-2.0); BG CARBOXYHEMOGLOBIN 0.6 % (0.5-1.5); BG DEOXYHEMOGLOBIN 21.8 % (0.0-5.0); BG FRACTION INSPIRED OXYGEN 100; BG METHEMOGLOBIN 0.3 % (0.0-1.5); BG OXYHEMOGLOBIN 77.3 % (94.0-97.0); BG PCO2 47.9 mmHg (35.0-45.0); BG PH 7.414 (7.350-7.450); BG PO2 45.7 mmHg (75.0-100.0); BG SAMPLE SITE RIGHT RADIAL; BG TIDAL VOLUME(mL) 600 mL; BG TOTAL HEMOGLOBIN 10.4 g/dL (12.0-18.0); BG VENT MODE VENT - A/C; BG VENT RATE 18 set
[2018-06-25] MEDS: GABAPENTIN 300MG CAPSULE PO SCH ×2 (09:00→18:15)
[2018-06-25] MEDS: ENOXAPARIN 30MG/0.3ML SYR SUBCUT SCH ×2 (09:00→21:33)
[2018-06-25] MEDS: BENAZEPRIL 10MG TABLET PO SCH (09:18)
[2018-06-25] MEDS: LEVETIRACETAM 500MG TABLET PO SCH ×2 (12:10→21:32)
[2018-06-25] MEDS: TERBINAFINE HCL 1% CREAM 30GM TOP SCH ×2 (12:19→18:14)
[2018-06-25] MEDS: ATORVASTATIN CALCIUM 40MG TABLET PO SCH (21:32)
[2018-06-26] VITALS (25 sets, daily range): BP systolic 90–141; BP diastolic 43–73
[2018-06-26] MEDS: BLOOD SUGAR DIAGNOSTIC STRIP TEST SCH ×4 (00:12→17:29)
[2018-06-26] MEDS: INSULIN LISPRO 100 UNITS/ML SUBCUT SCH ×4 (00:13→17:29)
[2018-06-26] MEDS: IPRATROPIUM/ALBUTEROL 0.5-3(2.5)MG/3ML NEB HHN SCH ×7 (04:11→22:08)
[2018-06-26] MEDS ORDERED: FUROSEMIDE 20MG/2ML VIAL IVP SCH (04:15)
[2018-06-26] MEDS: MORPHINE SULFATE 4 MG/ML CPJ (NOT FOR IM USE) IV PRN ×3 (04:25→19:47)
[2018-06-26] MEDS: SILDENAFIL CITRATE 20MG TABLET PO SCH ×3 (05:31→21:26)
[2018-06-26] MEDS: METHYLPREDNISOLONE SOD SUCC 40 MG/ML VIAL IV SCH ×2 (05:31→17:28)
[2018-06-26] MEDS: PHENYTOIN 100 MG/4 ML UDC NG SCH ×2 (08:05→17:28)
[2018-06-26] MEDS: PANTOPRAZOLE SODIUM 40 MG/VIAL IV SCH (08:05)
[2018-06-26] MEDS: BENAZEPRIL 10MG TABLET PO SCH (08:06)
[2018-06-26] MEDS: LEVETIRACETAM 500MG TABLET PO SCH ×2 (08:06→20:48)
[2018-06-26] MEDS: FERROUS SULFATE 325MG TABLET PO SCH ×2 (08:06→17:28)
[2018-06-26] MEDS: LACTOBACILLUS GG CAPSULE PO SCH (08:06)
[2018-06-26] MEDS: GABAPENTIN 300MG CAPSULE PO SCH ×2 (08:06→17:32)
[2018-06-26] MEDS: FOLIC ACID 1MG TABLET PO SCH (08:06)
[2018-06-26] MEDS: TERBINAFINE HCL 1% CREAM 30GM TOP SCH (08:07)
[2018-06-26] MEDS: ENOXAPARIN 30MG/0.3ML SYR SUBCUT SCH ×2 (08:07→20:47)
[2018-06-26] MEDS: TAMOXIFEN 10MG TABLET PO SCH (08:07)
[2018-06-26] MEDS: ACETAMINOPHEN 325MG TABLET NG PRN (08:10)
[2018-06-26 10:42] LABS: BG BASE EXCESS 5.2 mmol/L (-2.0-2.0); BG CARBOXYHEMOGLOBIN 0.8 % (0.5-1.5); BG DEOXYHEMOGLOBIN 16.6 % (0.0-5.0); BG FRACTION INSPIRED OXYGEN 100; BG HCO3 ACT 30.7 mmol/L (22.0-26.0); BG METHEMOGLOBIN 0.4 % (0.0-1.5); BG OXYGEN SATURATION 83.2 % (92.0-98.5); BG OXYHEMOGLOBIN 82.2 % (94.0-97.0); BG PCO2 50.3 mmHg (35.0-45.0); BG PH 7.403 (7.350-7.450); BG PO2 54.2 mmHg (75.0-100.0); BG SAMPLE SITE RIGHT RADIAL; BG TIDAL VOLUME(mL) 600 mL; BG TOTAL HEMOGLOBIN 8.3 g/dL (12.0-18.0); BG VENT MODE VENT - A/C; BG VENT RATE 18 set
[2018-06-26] MEDS ORDERED: FUROSEMIDE 40MG/4ML VIAL IVP SCH (12:30)
[2018-06-26] MEDS: DIPHENHYDRAMINE 50MG/ML VIAL IV PRN (14:19)
[2018-06-26 15:56] LABS: HEMATOCRIT. 28.2 % (36.0-48.0); HEMOGLOBIN. 8.8 g/dL (12.0-16.0); MEAN CORPUSCULAR HEMOGLOBIN 28.8 pg (28.0-32.0); MEAN CORPUSCULAR VOLUME 92.6 fL (81.0-99.0); MEAN PLATELET VOLUME 8.1 fl (7.4-10.4); PLATELET 314 x1000/uL (130-400); RED BLOOD CELL COUNT 3.04 mill/uL (4.2-5.4); RED CELL DISTRIBUTION WIDTH 16.9 % (11.6-14.6)
[2018-06-26 16:14] LABS: PHOSPHORUS 4.5 mg/dL (2.5-4.9)
[2018-06-26 17:43] LABS: PLATELET ESTIMATE NORMAL
[2018-06-26] MEDS: ONDANSETRON HCL 4MG/2ML INJ IV PRN (18:01)
[2018-06-26] MEDS: ATORVASTATIN CALCIUM 40MG TABLET PO SCH (20:48)
[2018-06-26] MEDS: INSULIN GLARGINE UD 100 UNITS/ML SYR SUBCUT SCH (21:27)
[2018-06-27] VITALS (30 sets, daily range): BP systolic 85–130; BP diastolic 39–78
[2018-06-27] MEDS: BLOOD SUGAR DIAGNOSTIC STRIP TEST SCH ×4 (00:24→17:07)
[2018-06-27] MEDS: INSULIN LISPRO 100 UNITS/ML SUBCUT SCH ×4 (00:28→17:06)
[2018-06-27] MEDS: IPRATROPIUM/ALBUTEROL 0.5-3(2.5)MG/3ML NEB HHN SCH ×8 (02:09→23:40)
[2018-06-27 05:07] LABS: BASOPHILS % 1.5 % (0.0-2.0); EOSINOPHILS % 2.8 % (0.0-5.0); HEMATOCRIT. 27.2 % (36.0-48.0); HEMOGLOBIN. 8.4 g/dL (12.0-16.0); LYMPHOCYTES % 9.8 % (20.0-50.0); MEAN CORPUSCULAR HEMOGLOBIN 28.6 pg (28.0-32.0); MEAN CORPUSCULAR VOLUME 92.3 fL (81.0-99.0); MEAN PLATELET VOLUME 8.4 fl (7.4-10.4); MONOCYTES % 9.5 % (2.0-8.0); NEUTROPHILS % 76.4 % (40.0-76.0); PLATELET 302 x1000/uL (130-400); RED BLOOD CELL COUNT 2.94 mill/uL (4.2-5.4)
[2018-06-27 05:21] LABS: PHOSPHORUS 5.1 mg/dL (2.5-4.9)
[2018-06-27] MEDS: SILDENAFIL CITRATE 20MG TABLET PO SCH ×3 (06:00→21:56)
[2018-06-27] MEDS: METHYLPREDNISOLONE SOD SUCC 40 MG/ML VIAL IV SCH ×2 (06:09→17:05)
[2018-06-27] MEDS: ENOXAPARIN 30MG/0.3ML SYR SUBCUT SCH ×2 (08:11→20:17)
[2018-06-27] MEDS: PHENYTOIN 100 MG/4 ML UDC NG SCH ×2 (08:11→17:05)
[2018-06-27] MEDS: LACTOBACILLUS GG CAPSULE PO SCH (08:11)
[2018-06-27] MEDS: FERROUS SULFATE 325MG TABLET PO SCH ×2 (08:11→17:05)
[2018-06-27] MEDS: GABAPENTIN 300MG CAPSULE PO SCH ×2 (08:11→17:05)
[2018-06-27] MEDS: PANTOPRAZOLE SODIUM 40 MG/VIAL IV SCH (08:11)
[2018-06-27] MEDS: FOLIC ACID 1MG TABLET PO SCH (08:11)
[2018-06-27] MEDS: LEVETIRACETAM 500MG TABLET PO SCH ×2 (08:11→20:17)
[2018-06-27] MEDS: TAMOXIFEN 10MG TABLET PO SCH (08:12)
[2018-06-27] MEDS: ACETAMINOPHEN 325MG TABLET NG PRN (08:12)
[2018-06-27] MEDS: TERBINAFINE HCL 1% CREAM 30GM TOP SCH (08:12)
[2018-06-27] MEDS: BENAZEPRIL 10MG TABLET PO SCH (08:13)
[2018-06-27 08:59] LABS: BG BASE EXCESS 5.1 mmol/L (-2.0-2.0); BG CARBOXYHEMOGLOBIN 0.9 % (0.5-1.5); BG DEOXYHEMOGLOBIN 20.2 % (0.0-5.0); BG FRACTION INSPIRED OXYGEN 100; BG HCO3 ACT 30.4 mmol/L (22.0-26.0); BG METHEMOGLOBIN 0.3 % (0.0-1.5); BG OXYGEN SATURATION 79.6 % (92.0-98.5); BG OXYHEMOGLOBIN 78.6 % (94.0-97.0); BG PCO2 49.3 mmHg (35.0-45.0); BG PH 7.408 (7.350-7.450); BG PO2 47.4 mmHg (75.0-100.0); BG SAMPLE SITE RIGHT RADIAL; BG TIDAL VOLUME(mL) 600 mL; BG TOTAL HEMOGLOBIN 8.7 g/dL (12.0-18.0); BG VENT MODE VENT - A/C; BG VENT RATE 18 set
[2018-06-27] MEDS: DIPHENHYDRAMINE 50MG/ML VIAL IV PRN (10:05)
[2018-06-27] MEDS: MORPHINE SULFATE 4 MG/ML CPJ (NOT FOR IM USE) IV PRN ×2 (18:23→22:47)
[2018-06-27] MEDS: ATORVASTATIN CALCIUM 40MG TABLET PO SCH (20:17)
[2018-06-27] MEDS: INSULIN GLARGINE UD 100 UNITS/ML SYR SUBCUT SCH (22:07)
[2018-06-28] VITALS (51 sets, daily range): BP systolic 65–175; BP diastolic 24–86
[2018-06-28] MEDS: INSULIN LISPRO 100 UNITS/ML SUBCUT SCH ×4 (00:18→18:17)
[2018-06-28] MEDS: BLOOD SUGAR DIAGNOSTIC STRIP TEST SCH ×4 (00:18→18:13)
[2018-06-28] MEDS: DIPHENHYDRAMINE 50MG/ML VIAL IV PRN ×2 (00:19→12:39)
[2018-06-28] MEDS: IPRATROPIUM/ALBUTEROL 0.5-3(2.5)MG/3ML NEB HHN SCH ×8 (01:59→23:44)
[2018-06-28] MEDS ORDERED: VANCOMYCIN 1250MG in DEXTROSE 5% WATER 250ML IV NR (02:00)
[2018-06-28] MEDS: MEROPENEM 1,000 MG in SODIUM CHLORIDE 0.9% 100 ML IV SCH ×2 (02:04→14:10)
[2018-06-28] MEDS: SILDENAFIL CITRATE 20MG TABLET PO SCH ×3 (05:49→21:55)
[2018-06-28] MEDS: METHYLPREDNISOLONE SOD SUCC 40 MG/ML VIAL IV SCH ×2 (05:49→16:39)
[2018-06-28 06:04] LABS: PHOSPHORUS 4.3 mg/dL (2.5-4.9)
[2018-06-28 06:05] LABS: EOSINOPHILS % 2.5 % (0.0-5.0); HEMATOCRIT. 31.1 % (36.0-48.0); HEMOGLOBIN. 9.4 g/dL (12.0-16.0); LYMPHOCYTES % 7.3 % (20.0-50.0); MEAN CORPUSCULAR HEMOGLOBIN 28.6 pg (28.0-32.0); MEAN CORPUSCULAR VOLUME 94.2 fL (81.0-99.0); MEAN PLATELET VOLUME 8.7 fl (7.4-10.4); MONOCYTES % 7.8 % (2.0-8.0); NEUTROPHILS % 81.4 % (40.0-76.0); PLATELET 329 x1000/uL (130-400); RED CELL DISTRIBUTION WIDTH 17.4 % (11.6-14.6)
[2018-06-28] MEDS: MORPHINE SULFATE 4 MG/ML CPJ (NOT FOR IM USE) IV PRN ×4 (06:17→19:36)
[2018-06-28 08:02] LABS: BG CARBOXYHEMOGLOBIN 1.2 % (0.5-1.5); BG DEOXYHEMOGLOBIN 13.1 % (0.0-5.0); BG FRACTION INSPIRED OXYGEN 100; BG HCO3 ACT 28.7 mmol/L (22.0-26.0); BG METHEMOGLOBIN 0.1 % (0.0-1.5); BG OXYGEN SATURATION 86.7 % (92.0-98.5); BG OXYHEMOGLOBIN 85.6 % (94.0-97.0); BG PCO2 49.1 mmHg (35.0-45.0); BG PH 7.384 (7.350-7.450); BG PO2 57.5 mmHg (75.0-100.0); BG SAMPLE SITE RIGHT BRACHIAL; BG TIDAL VOLUME(mL) 600 mL; BG TOTAL HEMOGLOBIN 9.6 g/dL (12.0-18.0); BG VENT MODE VENT - A/C; BG VENT RATE 18 set
[2018-06-28] MEDS: PANTOPRAZOLE SODIUM 40 MG/VIAL IV SCH (09:11)
[2018-06-28] MEDS: PHENYTOIN 100 MG/4 ML UDC NG SCH ×2 (09:11→16:39)
[2018-06-28] MEDS: LEVETIRACETAM 500MG TABLET PO SCH ×2 (09:12→21:54)
[2018-06-28] MEDS: FOLIC ACID 1MG TABLET PO SCH (09:12)
[2018-06-28] MEDS: FERROUS SULFATE 325MG TABLET PO SCH ×2 (09:12→16:38)
[2018-06-28] MEDS: GABAPENTIN 300MG CAPSULE PO SCH ×2 (09:12→16:38)
[2018-06-28] MEDS: LACTOBACILLUS GG CAPSULE PO SCH (09:12)
[2018-06-28] MEDS: BENAZEPRIL 10MG TABLET PO SCH (09:17)
[2018-06-28] MEDS: ENOXAPARIN 30MG/0.3ML SYR SUBCUT SCH ×2 (09:18→21:55)
[2018-06-28] MEDS: TERBINAFINE HCL 1% CREAM 30GM TOP SCH (09:18)
[2018-06-28] MEDS: TAMOXIFEN 10MG TABLET PO SCH (09:20)
[2018-06-28] MEDS: ACETAMINOPHEN 325MG TABLET NG PRN (19:35)
[2018-06-28] MEDS: NOREPINEPHRINE 4 MG in DEXT 5% WATER 246 ML IV PRN (21:05)
[2018-06-28 21:20] LABS: BG BASE EXCESS 6.3 mmol/L (-2.0-2.0); BG CARBOXYHEMOGLOBIN 0.6 % (0.5-1.5); BG DEOXYHEMOGLOBIN 16.5 % (0.0-5.0); BG FRACTION INSPIRED OXYGEN 100; BG HCO3 ACT 31.5 mmol/L (22.0-26.0); BG METHEMOGLOBIN 0.4 % (0.0-1.5); BG OXYGEN SATURATION 83.3 % (92.0-98.5); BG OXYHEMOGLOBIN 82.5 % (94.0-97.0); BG PCO2 49.2 mmHg (35.0-45.0); BG PH 7.424 (7.350-7.450); BG PO2 49.4 mmHg (75.0-100.0); BG SAMPLE SITE RIGHT RADIAL; BG TIDAL VOLUME(mL) 600 mL; BG TOTAL HEMOGLOBIN 8.8 g/dL (12.0-18.0); BG VENT MODE VENT - A/C; BG VENT RATE 18 set
[2018-06-28] MEDS: ATORVASTATIN CALCIUM 40MG TABLET PO SCH (21:54)
[2018-06-28] MEDS: VANCOMYCIN 750 MG PREMIX 150 ML IV SCH (22:58)
[2018-06-28] MEDS: INSULIN GLARGINE UD 100 UNITS/ML SYR SUBCUT SCH (23:21)
[2018-06-29] VITALS (81 sets, daily range): BP systolic 59–171; BP diastolic 28–93
[2018-06-29] MEDS ORDERED: VANCOMYCIN 1 G PREMIX 200 ML IV SCH
[2018-06-29] MEDS ORDERED: IPRATROPIUM/ALBUTEROL 0.5-3(2.5)MG/3ML NEB HHN SCH
[2018-06-29] MEDS: MEROPENEM 1,000 MG in SODIUM CHLORIDE 0.9% 100 ML IV SCH ×2 (01:02→14:11)
[2018-06-29] MEDS: INSULIN LISPRO 100 UNITS/ML SUBCUT SCH ×5 (01:03→23:26)
[2018-06-29] MEDS: IPRATROPIUM/ALBUTEROL 0.5-3(2.5)MG/3ML NEB HHN SCH ×5 (02:00→20:23)
[2018-06-29] MEDS: MORPHINE SULFATE 4 MG/ML CPJ (NOT FOR IM USE) IV PRN ×4 (02:37→22:35)
[2018-06-29] MEDS: METHYLPREDNISOLONE SOD SUCC 40 MG/ML VIAL IV SCH ×2 (06:11→17:23)
[2018-06-29] MEDS: SILDENAFIL CITRATE 20MG TABLET PO SCH ×3 (06:11→21:55)
[2018-06-29] MEDS: BLOOD SUGAR DIAGNOSTIC STRIP TEST SCH ×5 (06:12→23:23)
[2018-06-29 06:17] LABS: HEMOGLOBIN. 9.3 g/dL (12.0-16.0); MEAN CORPUSCULAR VOLUME 93.2 fL (81.0-99.0); MEAN PLATELET VOLUME 8.6 fl (7.4-10.4); PLATELET 350 x1000/uL (130-400); RED BLOOD CELL COUNT 3.33 mill/uL (4.2-5.4)
[2018-06-29 06:29] LABS: PHOSPHORUS 4.7 mg/dL (2.5-4.9)
[2018-06-29] MEDS ORDERED: SODIUM POLYSTYRENE SULFONATE 15 G/60 ML BOT PO SCH (07:00)
[2018-06-29] MEDS ORDERED: SORBITOL 70% SOLN 30ML PO SCH (07:00)
[2018-06-29] MEDS: LACTOBACILLUS GG CAPSULE PO SCH (08:16)
[2018-06-29] MEDS: FOLIC ACID 1MG TABLET PO SCH (08:16)
[2018-06-29] MEDS: PHENYTOIN 100 MG/4 ML UDC NG SCH ×2 (08:16→17:17)
[2018-06-29] MEDS: PANTOPRAZOLE SODIUM 40 MG/VIAL IV SCH (08:16)
[2018-06-29] MEDS: GABAPENTIN 300MG CAPSULE PO SCH ×2 (08:17→17:18)
[2018-06-29] MEDS: LEVETIRACETAM 500MG TABLET PO SCH ×2 (08:17→21:55)
[2018-06-29] MEDS: FERROUS SULFATE 325MG TABLET PO SCH ×2 (08:17→17:19)
[2018-06-29] MEDS: TAMOXIFEN 10MG TABLET PO SCH (08:22)
[2018-06-29] MEDS: BENAZEPRIL 10MG TABLET PO SCH (08:23)
[2018-06-29] MEDS: TERBINAFINE HCL 1% CREAM 30GM TOP SCH (08:23)
[2018-06-29 08:54] LABS: PLATELET ESTIMATE NORMAL
[2018-06-29 08:57] LABS: BG BASE EXCESS 4.2 mmol/L (-2.0-2.0); BG DEOXYHEMOGLOBIN 31.3 % (0.0-5.0); BG FRACTION INSPIRED OXYGEN 100; BG HCO3 ACT 29.7 mmol/L (22.0-26.0); BG METHEMOGLOBIN 0.3 % (0.0-1.5); BG OXYGEN SATURATION 68.3 % (92.0-98.5); BG OXYHEMOGLOBIN 67.4 % (94.0-97.0); BG PCO2 49.5 mmHg (35.0-45.0); BG PH 7.396 (7.350-7.450); BG PO2 39.4 mmHg (75.0-100.0); BG SAMPLE SITE RIGHT RADIAL; BG TIDAL VOLUME(mL) 600 mL; BG TOTAL HEMOGLOBIN 9.5 g/dL (12.0-18.0); BG VENT MODE VENT - A/C; BG VENT RATE 18 set
[2018-06-29] MEDS: ENOXAPARIN 30MG/0.3ML SYR SUBCUT SCH ×2 (12:49→21:54)
[2018-06-29 16:04] LABS: BG BASE EXCESS 3.9 mmol/L (-2.0-2.0); BG DEOXYHEMOGLOBIN 18.8 % (0.0-5.0); BG FRACTION INSPIRED OXYGEN 100; BG HCO3 ACT 29.3 mmol/L (22.0-26.0); BG METHEMOGLOBIN 0.6 % (0.0-1.5); BG OXYGEN SATURATION 80.9 % (92.0-98.5); BG OXYHEMOGLOBIN 79.6 % (94.0-97.0); BG PCO2 48.9 mmHg (35.0-45.0); BG PH 7.396 (7.350-7.450); BG PO2 49.9 mmHg (75.0-100.0); BG SAMPLE SITE RIGHT BRACHIAL; BG TIDAL VOLUME(mL) 650 mL; BG TOTAL HEMOGLOBIN 8.9 g/dL (12.0-18.0); BG VENT MODE VENT - A/C; BG VENT RATE 18 set
[2018-06-29] MEDS: FLUCONAZOLE 100MG TABLET PO SCH (18:42)
[2018-06-29] MEDS: ACETAMINOPHEN 325MG TABLET NG PRN (21:54)
[2018-06-29] MEDS: ATORVASTATIN CALCIUM 40MG TABLET PO SCH (21:55)
[2018-06-29 22:03] LABS: CLARITY URINE TURBID (CLEAR); COLOR URINE YELLOW (YELLOW); KETONES URINE NEGATIVE (NEGATIVE); LEUKOCYTE ESTERASE URINE 2+ (NEGATIVE); NITRITE URINE NEGATIVE (NEGATIVE); OCCULT BLOOD URINE 2+ (NEGATIVE); PROTEIN URINE 2+ (NEGATIVE); UROBILINOGEN URINE 0.2 E.U./dL (0.2-1.0)
[2018-06-29] MEDS: INSULIN GLARGINE UD 100 UNITS/ML SYR SUBCUT SCH (22:50)
[2018-06-29] MEDS: VANCOMYCIN 750 MG PREMIX 150 ML IV SCH (22:52)
[2018-06-29] MEDS: NOREPINEPHRINE 4 MG in DEXT 5% WATER 246 ML IV PRN (22:57)
[2018-06-30] VITALS (93 sets, daily range): BP systolic 79–165; BP diastolic 21–117
[2018-06-30] MEDS: IPRATROPIUM/ALBUTEROL 0.5-3(2.5)MG/3ML NEB HHN SCH ×7 (00:19→20:19)
[2018-06-30] MEDS: MEROPENEM 1,000 MG in SODIUM CHLORIDE 0.9% 100 ML IV SCH ×2 (01:51→13:11)
[2018-06-30] MEDS: MORPHINE SULFATE 4 MG/ML CPJ (NOT FOR IM USE) IV PRN ×5 (03:26→21:00)
[2018-06-30] MEDS: BLOOD SUGAR DIAGNOSTIC STRIP TEST SCH ×3 (05:17→18:35)
[2018-06-30] MEDS: INSULIN LISPRO 100 UNITS/ML SUBCUT SCH ×3 (05:22→18:34)
[2018-06-30] MEDS: SILDENAFIL CITRATE 20MG TABLET PO SCH ×3 (05:23→20:57)
[2018-06-30] MEDS: METHYLPREDNISOLONE SOD SUCC 40 MG/ML VIAL IV SCH ×2 (05:23→18:33)
[2018-06-30 06:01] LABS: HEMATOCRIT. 30.7 % (36.0-48.0); HEMOGLOBIN. 9.2 g/dL (12.0-16.0); MEAN CORPUSCULAR HEMOGLOBIN 27.6 pg (28.0-32.0); MEAN CORPUSCULAR VOLUME 91.7 fL (81.0-99.0); MEAN PLATELET VOLUME 8.8 fl (7.4-10.4); PLATELET 397 x1000/uL (130-400); RED BLOOD CELL COUNT 3.34 mill/uL (4.2-5.4); RED CELL DISTRIBUTION WIDTH 17.8 % (11.6-14.6)
[2018-06-30] MEDS: BENAZEPRIL 10MG TABLET PO SCH (09:00)
[2018-06-30] MEDS: TAMOXIFEN 10MG TABLET PO SCH (09:08)
[2018-06-30] MEDS: PHENYTOIN 100 MG/4 ML UDC NG SCH ×2 (09:08→16:09)
[2018-06-30] MEDS: GABAPENTIN 300MG CAPSULE PO SCH ×2 (09:10→16:09)
[2018-06-30] MEDS: LACTOBACILLUS GG CAPSULE PO SCH (09:10)
[2018-06-30] MEDS: LEVETIRACETAM 500MG TABLET PO SCH ×2 (09:10→20:57)
[2018-06-30] MEDS: TERBINAFINE HCL 1% CREAM 30GM TOP SCH (09:11)
[2018-06-30] MEDS: FERROUS SULFATE 325MG TABLET PO SCH ×2 (09:11→16:09)
[2018-06-30] MEDS: FOLIC ACID 1MG TABLET PO SCH (09:11)
[2018-06-30] MEDS: PANTOPRAZOLE SODIUM 40 MG/VIAL IV SCH (09:11)
[2018-06-30] MEDS: FLUCONAZOLE 100MG TABLET PO SCH (09:11)
[2018-06-30] MEDS: ENOXAPARIN 30MG/0.3ML SYR SUBCUT SCH ×2 (09:14→21:11)
[2018-06-30] MEDS: ACETAMINOPHEN 325MG TABLET NG PRN (11:30)
[2018-06-30 13:51] LABS: PLATELET ESTIMATE NORMAL
[2018-06-30] MEDS: ATORVASTATIN CALCIUM 40MG TABLET PO SCH (20:57)
[2018-06-30] MEDS: INSULIN GLARGINE UD 100 UNITS/ML SYR SUBCUT SCH (21:16)
[2018-06-30] MEDS: VANCOMYCIN 750 MG PREMIX 150 ML IV SCH (23:26)
[2018-07-01] VITALS (56 sets, daily range): BP systolic 59–150; BP diastolic 38–74
[2018-07-01] MEDS: MEROPENEM 1,000 MG in SODIUM CHLORIDE 0.9% 100 ML IV SCH ×2 (02:25→14:51)
[2018-07-01] MEDS: INSULIN LISPRO 100 UNITS/ML SUBCUT SCH ×4 (02:26→17:50)
[2018-07-01] MEDS: IPRATROPIUM/ALBUTEROL 0.5-3(2.5)MG/3ML NEB HHN SCH ×6 (03:48→23:39)
[2018-07-01] MEDS: MORPHINE SULFATE 4 MG/ML CPJ (NOT FOR IM USE) IV PRN ×4 (04:49→20:25)
[2018-07-01] MEDS: SILDENAFIL CITRATE 20MG TABLET PO SCH ×3 (05:06→22:12)
[2018-07-01] MEDS: METHYLPREDNISOLONE SOD SUCC 40 MG/ML VIAL IV SCH ×2 (05:06→17:49)
[2018-07-01] MEDS: BLOOD SUGAR DIAGNOSTIC STRIP TEST SCH ×4 (05:18→17:50)
[2018-07-01 07:42] LABS: CHLORIDE 103 mEq/L (98-107)
[2018-07-01] MEDS: BENAZEPRIL 10MG TABLET PO SCH (09:00)
[2018-07-01] MEDS: FLUCONAZOLE 100MG TABLET PO SCH ×2 (09:00→17:49)
[2018-07-01 09:03] LABS: HEMATOCRIT. 29.3 % (36.0-48.0); MEAN CORPUSCULAR HEMOGLOBIN 28.4 pg (28.0-32.0); MEAN PLATELET VOLUME 8.7 fl (7.4-10.4); PLATELET 321 x1000/uL (130-400); RED BLOOD CELL COUNT 3.15 mill/uL (4.2-5.4); RED CELL DISTRIBUTION WIDTH 17.7 % (11.6-14.6)
[2018-07-01 10:25] LABS: BG BASE EXCESS 5.6 mmol/L (-2.0-2.0); BG CARBOXYHEMOGLOBIN 1.4 % (0.5-1.5); BG DEOXYHEMOGLOBIN 29.9 % (0.0-5.0); BG FRACTION INSPIRED OXYGEN 100; BG HCO3 ACT 31.9 mmol/L (22.0-26.0); BG METHEMOGLOBIN 0.3 % (0.0-1.5); BG OXYGEN SATURATION 69.6 % (92.0-98.5); BG OXYHEMOGLOBIN 68.4 % (94.0-97.0); BG PH 7.374 (7.350-7.450); BG PO2 40.8 mmHg (75.0-100.0); BG SAMPLE SITE RIGHT RADIAL; BG TIDAL VOLUME(mL) 650 mL; BG TOTAL HEMOGLOBIN 10.2 g/dL (12.0-18.0); BG VENT MODE VENT - A/C; BG VENT RATE 18 set
[2018-07-01] MEDS: PHENYTOIN 100 MG/4 ML UDC NG SCH ×2 (10:41→17:49)
[2018-07-01] MEDS: TAMOXIFEN 10MG TABLET PO SCH (10:41)
[2018-07-01] MEDS: GABAPENTIN 300MG CAPSULE PO SCH ×2 (10:41→17:48)
[2018-07-01] MEDS: FERROUS SULFATE 325MG TABLET PO SCH ×2 (10:42→17:49)
[2018-07-01] MEDS: LEVETIRACETAM 500MG TABLET PO SCH ×2 (10:42→20:38)
[2018-07-01] MEDS: FOLIC ACID 1MG TABLET PO SCH (10:43)
[2018-07-01] MEDS: TERBINAFINE HCL 1% CREAM 30GM TOP SCH (10:53)
[2018-07-01] MEDS: ENOXAPARIN 30MG/0.3ML SYR SUBCUT SCH ×2 (10:53→20:38)
[2018-07-01] MEDS: LACTOBACILLUS GG CAPSULE PO SCH (10:53)
[2018-07-01] MEDS: PANTOPRAZOLE SODIUM 40 MG/VIAL IV SCH (10:57)
[2018-07-01 13:06] LABS: PLATELET ESTIMATE NORMAL
[2018-07-01] MEDS: ATORVASTATIN CALCIUM 40MG TABLET PO SCH (20:37)
[2018-07-01] MEDS: INSULIN GLARGINE UD 100 UNITS/ML SYR SUBCUT SCH (20:50)
[2018-07-01] MEDS: VANCOMYCIN 750 MG PREMIX 150 ML IV SCH (22:25)
[2018-07-02] VITALS (30 sets, daily range): BP systolic 91–170; BP diastolic 51–82
[2018-07-02] MEDS: BLOOD SUGAR DIAGNOSTIC STRIP TEST SCH ×2 (00:31→06:00)
[2018-07-02] MEDS: INSULIN LISPRO 100 UNITS/ML SUBCUT SCH ×2 (00:34→05:59)
[2018-07-02] MEDS: MORPHINE SULFATE 4 MG/ML CPJ (NOT FOR IM USE) IV PRN ×2 (01:00→11:14)
[2018-07-02] MEDS: MEROPENEM 1,000 MG in SODIUM CHLORIDE 0.9% 100 ML IV SCH ×2 (02:42→14:00)
[2018-07-02] MEDS: IPRATROPIUM/ALBUTEROL 0.5-3(2.5)MG/3ML NEB HHN SCH ×3 (04:06→12:21)
[2018-07-02] MEDS: METHYLPREDNISOLONE SOD SUCC 40 MG/ML VIAL IV SCH (05:48)
[2018-07-02] MEDS: SILDENAFIL CITRATE 20MG TABLET PO SCH ×2 (05:49→13:58)
[2018-07-02] MEDS: ACETAMINOPHEN 325MG TABLET NG PRN (07:32)
[2018-07-02] MEDS: BENAZEPRIL 10MG TABLET PO SCH (09:00)
[2018-07-02 09:22] LABS: BG BASE EXCESS 2.7 mmol/L (-2.0-2.0); BG CARBOXYHEMOGLOBIN 0.5 % (0.5-1.5); BG DEOXYHEMOGLOBIN 10.9 % (0.0-5.0); BG METHEMOGLOBIN 0.4 % (0.0-1.5); BG OXYHEMOGLOBIN 88.2 % (94.0-97.0); BG PCO2 46.4 mmHg (35.0-45.0); BG PH 7.398 (7.350-7.450); BG PO2 61.9 mmHg (75.0-100.0); BG SAMPLE SITE RIGHT RADIAL; BG TIDAL VOLUME(mL) 650 mL; BG TOTAL HEMOGLOBIN 10.2 g/dL (12.0-18.0); BG VENT MODE VENT - A/C; BG VENT RATE 18 set
[2018-07-02] MEDS: FERROUS SULFATE 325MG TABLET PO SCH (10:36)
[2018-07-02] MEDS: LACTOBACILLUS GG CAPSULE PO SCH (10:36)
[2018-07-02] MEDS: PANTOPRAZOLE SODIUM 40 MG/VIAL IV SCH (10:36)
[2018-07-02] MEDS: PHENYTOIN 100 MG/4 ML UDC NG SCH (10:37)
[2018-07-02] MEDS: FOLIC ACID 1MG TABLET PO SCH (10:37)
[2018-07-02] MEDS: ENOXAPARIN 30MG/0.3ML SYR SUBCUT SCH (10:37)
[2018-07-02] MEDS: TAMOXIFEN 10MG TABLET PO SCH (10:37)
[2018-07-02] MEDS: GABAPENTIN 300MG CAPSULE PO SCH (10:38)
[2018-07-02] MEDS: LEVETIRACETAM 500MG TABLET PO SCH (10:38)
[2018-07-02] MEDS: TERBINAFINE HCL 1% CREAM 30GM TOP SCH (10:38)
[2018-07-02] MEDS ORDERED: DEXT 5% IV PRN (11:15)
[2018-07-02] MEDS ORDERED: MORPHINE IV PRN (11:15)
[2018-07-02] MEDS ORDERED: WATER IV PRN (11:15)
[2018-07-02] MEDS ORDERED: LIDOCAINE HCL/PF 1% 2ML VIAL ONE (15:32)
== END 2018-07-02 20:30 | disposition expired | DRG 870 ==
LOC: ER 10:56 → EDBEDREQ 14:39 → EDBEDREQSVC 14:39 → EDBEDREQ 14:40 → 3WST 15:02 → EDBEDREQ 15:06 → EDBEDREQSVC 15:06 → ENRESERV 15:58 → UNDODISIN 06-08 14:00 → MICUSO 06-16 13:30 → CVICU 06-28 17:59
PROVIDERS: ADMIT Internal Medicine; ATTEND Internal Medicine
PROC: 02HV33Z Insertion of Infusion Device into Superior Vena Cava, Percutaneous Approach (ICD-10-PCS; 2018-06-05)
PROC: B548ZZA Ultrasonography of Superior Vena Cava, Guidance (ICD-10-PCS; 2018-06-05)
PROC: 5A09457 Assistance with Respiratory Ventilation, 24-96 Consecutive Hours, Continuous Positive Airway Pressure (ICD-10-PCS; 2018-06-05)
PROC: 5A09357 Assistance with Respiratory Ventilation, Less than 24 Consecutive Hours, Continuous Positive Airway Pressure (ICD-10-PCS; 2018-06-08)
PROC: 5A09357 Assistance with Respiratory Ventilation, Less than 24 Consecutive Hours, Continuous Positive Airway Pressure (ICD-10-PCS; 2018-06-10)
PROC: 5A09457 Assistance with Respiratory Ventilation, 24-96 Consecutive Hours, Continuous Positive Airway Pressure (ICD-10-PCS; 2018-06-11)
PROC: 5A09357 Assistance with Respiratory Ventilation, Less than 24 Consecutive Hours, Continuous Positive Airway Pressure (ICD-10-PCS; 2018-06-13)
PROC: 5A09357 Assistance with Respiratory Ventilation, Less than 24 Consecutive Hours, Continuous Positive Airway Pressure (ICD-10-PCS; 2018-06-14)
PROC: 5A09457 Assistance with Respiratory Ventilation, 24-96 Consecutive Hours, Continuous Positive Airway Pressure (ICD-10-PCS; 2018-06-15)
PROC: 5A1955Z Respiratory Ventilation, Greater than 96 Consecutive Hours (ICD-10-PCS; principal; 2018-06-17)
PROC: 0BH17EZ Insertion of Endotracheal Airway into Trachea, Via Natural or Artificial Opening (ICD-10-PCS; 2018-06-18)
PROC: 0CJS8ZZ Inspection of Larynx, Via Natural or Artificial Opening Endoscopic (ICD-10-PCS; 2018-06-18)
DX: A41.9 Sepsis, unspecified organism (principal); J18.9 Pneumonia, unspecified organism; J96.21 Acute and chronic respiratory failure with hypoxia; J44.1 Chronic obstructive pulmonary disease with (acute) exacerbation; C78.6 Secondary malignant neoplasm of retroperitoneum and peritoneum; I13.0 Hypertensive heart and chronic kidney disease with heart failure and stage 1 through stage 4 chronic kidney disease, or unspecified chronic kidney disease; J44.0 Chronic obstructive pulmonary disease with (acute) lower respiratory infection; N17.9 Acute kidney failure, unspecified; E66.9 Obesity, unspecified; R19.7 Diarrhea, unspecified; M19.90 Unspecified osteoarthritis, unspecified site; C55 Malignant neoplasm of uterus, part unspecified; D64.9 Anemia, unspecified; E10.22 Type 1 diabetes mellitus with diabetic chronic kidney disease; E78.00 Pure hypercholesterolemia, unspecified; E78.5 Hyperlipidemia, unspecified; E86.0 Dehydration; G40.909 Epilepsy, unspecified, not intractable, without status epilepticus; I27.20 Pulmonary hypertension, unspecified; I50.9 Heart failure, unspecified; L30.4 Erythema intertrigo; L89.159 Pressure ulcer of sacral region, unspecified stage; N18.9 Chronic kidney disease, unspecified; Y95 Nosocomial condition; Z78.1 Physical restraint status; Z79.4 Long term (current) use of insulin; Z90.49 Acquired absence of other specified parts of digestive tract; Z98.891 History of uterine scar from previous surgery; Z99.81 Dependence on supplemental oxygen; Z79.899 Other long term (current) drug therapy; Z68.36 Body mass index [BMI] 36.0-36.9, adult
CPT/HCPCS: 31500; 36415; 36569; 36600; 51702; 71045; 71250; 74176; 76937; 80048; 80185; 80202; 82375; 82542; 82550; 82565; 82607; 82746; 82805; 82962; 83540; 83550; 83735; 83880; 84100; 84132; 84134; 84484; 85027; 85651; 87015; 87045; 87070; 87106; 87427; 87449; 89055; 93005; 93306; 93970; 94002; 94003; 94640; 94660; 96365; 96366; 96367; 96375; 99285; A6261; C1725; C9113; J0330; J0692; J1165; J1200; J1650; J1815; J1940; J1956; J2060; J2185; J2270; J2405; J2543; J2920; J2930; J3370; J3475; J3490; J7030; J7040; J7050; J7060; J7131; J7512; J7620; Q9963; A4315